=== PATIENT | female | born 1970 | race Caucasian/White ===

== ENCOUNTER → 2017-03-27 | Outpatient (CLI) | payer MEDICAID, SELFPAY | PROVIDERS: Family Provider Nurse Practitioner Family; Visit Provider Nurse Practitioner Family | DX: M65.311 Trigger thumb, right thumb (principal) | CPT/HCPCS: 73130; 73140 ==

== ENCOUNTER → 2017-10-31 08:35 | Outpatient (CLI) | payer MEDICAID, SELFPAY ==
--- NOTE | 2017-10-31 09:00 | US_ITS ---
US biopsy guidance, US soft tissue head and neck, US organ site ( Ordering Physician: Jamaal Jones MD Patient Age: 47 years: Female HISTORY: ITS.REASON: RT CERVICAL MASSnow for FNA biopsy TECHNIQUE: Ultrasound About ultrasound-guided FNA biopsy of the right neck mass. Just inferior to the right parotid FINDINGS AND PROCEDURE: ULTRASOUND right neck; Echogenic mass at the right neck just inferior to the parotid just below the angle of mandible. It is suspect for infected or complication of a brachial cleft cyst however this subtle cytology report is noted atypia, atypical cells (best important to review cytopathology report) This mass was initially identified outside at [facility] studies. It it appears similar this ultrasound today-it is again identified and measures up to 3 cm length x 2 cm AP. These images also determined the best approach for access to perform aspiration biopsy of this nodule. Scanning by Dr. Israel ULTRASOUND-GUIDED FNA BIOPSY Right Neck Mass I would note patient received Xanax 1 mg for comfort and mild sedation. Prior to the procedure Following sterile preparation as well as local skin, and cautious deeper placement of Xylocaine anesthetic, Under ultrasound guidance the biopsy needle, was advanced to the nodule and positioned. Needle tip was observed passing into the nodule on each of 2 aspiration passes. Similar material was obtained with the initial 25-gauge needle A second pass was then made with a 22-gauge needle in this debris-filled cystic area aspirated and we were able to drain nearly completely. 3-4 cc withdrawn and distributed between the different containers. Turbid greenish-white fluid was obtained. It was sent for differential ,culture and sensitivity... And Gram stain subsequent requested. And also sent for cytology/and flow cytometry;. . IMPRESSION: ------- . 1. turbid whitish purulent appearing aspirated from this 3 cm right neck mass. Summary: 3 cm echogenic ovoid mass at right neck, just below angle of mandible. This is identified on initial ultrasound and was subsequent aspirated under ultrasound guidance. It revealed itself to be primarily a cystic debris-filled cyst containing thick greenish-white fluid.... Suspect initially questioned a infected brachial cleft cyst I but now now see that the cytopathology report demonstrates atypical cells with more involvement differential diagnosis. Please see cytopathology report. In either case this turbid cystic area was near completely drained under ultrasound.. Specimens at sent to lab as as above Added note given the atypia: In retrospect at the end of the exam a question thicker areas which would not aspirate and which I thought were thick purulent material however question now if they could reflect thicker semisolid tissue at its margin of this cystic area.
[2017-10-31 14:29] LABS: Appearance,Body Fld. Cloudy; Volume,Body Fld. 1.5 mL
[2017-10-31 14:30] LABS: Mononuclear WBCs,Body Fluid 30 %; Polynuclear WBC,Body Fluid 70 %
== END ==
PROVIDERS: Family Provider Nurse Practitioner Family; PCP Nurse Practitioner Family; Visit Provider Otolaryngology
DX: R22.1 Localized swelling, mass and lump, neck (principal)
CPT/HCPCS: 10022; 76942; 76536; 87070; 87075; 87205; 89051

== ENCOUNTER 2018-08-21 11:00 | Outpatient (RCR) | payer MEDICAID, SELFPAY | END 2018-09-19 10:30 | disposition home or self-care (01) | LOC: PT.CARL 11:00 | PROVIDERS: Visit Provider Nurse Practitioner Family | DX: G44.209 Tension-type headache, unspecified, not intractable (principal); M25.551 Pain in right hip | CPT/HCPCS: 97014; 97110; 97163; G0283 ==

== ENCOUNTER → 2021-01-09 16:45 | Outpatient (CLI) | payer MEDICAID, SELFPAY | PROVIDERS: Visit Provider Nurse Practitioner | DX: Z20.822 Contact with and (suspected) exposure to COVID-19 (principal) | CPT/HCPCS: C9803; U0003; U0005 ==

== ENCOUNTER 2023-07-23 10:52 | Outpatient (CLI) | payer MEDICAID, SELFPAY ==
--- NOTE | 2023-07-23 10:55 | XR_ITS ---
FINAL REPORT CLINICAL HISTORY: Left knee pain swelling x 1 month injury x 2 years ago leg going numb , fell and hit sidewalk COMPARISON: None FINDINGS: LEFT KNEE 3 views of the left knee were obtained. There is no acute fracture or dislocation. There is mild chondrocalcinosis. The joint spaces are preserved. There is no evidence of joint effusion. Visualized joint spaces are normally aligned. Soft tissues are unremarkable. IMPRESSION: No acute bony abnormality. Reviewed, Interpreted and Dictated by Terrence Kerr MD Transcribed by Mary Aguilar Authenticated and [facility]
== END 2023-07-23 23:59 ==
LOC: RAD 10:52
PROVIDERS: PCP Family Medicine; Visit Provider Orthopaedic Surgery
DX: M25.562 Pain in left knee (principal)
CPT/HCPCS: 73562

== ENCOUNTER 2024-05-17 13:13 | Outpatient (CLI) | payer MEDICAID, SELFPAY ==
--- NOTE | 2024-05-17 14:33 | XR_ITS ---
PROCEDURE INFORMATION: Exam: XR Right Hip Exam date and time: 05/17/2024 2:24 PM Age: 53 years old Clinical indication: Hip pain; Right hip TECHNIQUE: Imaging protocol: Radiologic exam of the right hip. Views: 2 or 3 views hip with pelvis when performed. COMPARISON: No relevant prior studies available. FINDINGS: Bones/joints: Degenerative changes in both hips and sacroiliac joints. There is no evidence of acute fracture.There is no evidence of malalignment or dislocation. Soft tissues: Unremarkable. IMPRESSION: There is no evidence of acute fracture.There is no evidence of malalignment or dislocation.
--- NOTE | 2024-05-17 14:33 | XR_ITS ---
PROCEDURE INFORMATION: Exam: XR Lumbosacral Spine Exam date and time: 05/17/2024 2:30 PM Age: 53 years old Clinical indication: Low back pain TECHNIQUE: Imaging protocol: Radiologic exam of the lumbosacral spine. Views: 2 or 3 views. COMPARISON: CR Hip L 05/17/2024 2:25 PM FINDINGS: Bones/joints: Levoscoliosis of the lumbar spine. There is no evidence of acute fracture.There is no evidence of malalignment or dislocation. Intervertebral disc spaces are narrowed L3 through S1 consistent with degenerative disc disease. Soft tissues: Unremarkable. Intraperitoneal space: Surgical clips in the right upper quadrant IMPRESSION: 1. There is no evidence of acute fracture.There is no evidence of malalignment or dislocation. 2. Intervertebral disc spaces are narrowed L3 through S1 consistent with degenerative disc disease.
--- NOTE | 2024-05-17 14:33 | XR_ITS ---
PROCEDURE INFORMATION: Exam: XR Left Hip Exam date and time: 05/17/2024 2:25 PM Age: 53 years old Clinical indication: Hip pain; Left hip TECHNIQUE: Imaging protocol: Radiologic exam of the left hip. Views: 2 or 3 views hip with pelvis when performed. COMPARISON: No relevant prior studies available. FINDINGS: Bones/joints: There is no evidence of acute fracture.There is no evidence of malalignment or dislocation. Degenerative changes in both hips Soft tissues: Unremarkable. Intraperitoneal space: Surgical clips in the pelvis IMPRESSION: There is no evidence of acute fracture.There is no evidence of malalignment or dislocation.
== END 2024-05-17 23:59 | disposition home or self-care (01) ==
LOC: RAD 13:15
PROVIDERS: PCP Family Medicine; Visit Provider Family Medicine
DX: M25.551 Pain in right hip (principal); M25.552 Pain in left hip
CPT/HCPCS: 72100; 73502

== ENCOUNTER 2024-12-28 13:19 | Outpatient (CLI) | payer MEDICAID, SELFPAY ==
--- OUTSIDE RECORDS SUMMARY | 2024-12-14 10:11 | XMS_ITS | Encounter Summary ---
Author Organization [facility] Address [address] [place] [address] Care Team Providers Care Merchandising Intern Name Role Phone Marti Leon RN Unavailable Unavailable Isaak Owens MD Unavailable [phone] Mitra Villavicencio FINISHER TAILOR APPRENTICE Unavailable [phone] Darlyn Castro RN Unavailable Unavailable Marti Abad Unavailable Unavailable Yaw Hitchcock MD Primary Care Provider Edilma vailable Reason for Referral * Imaging (Routine) - Closed Specialty Diagnoses / Procedures Referred By Contac t Referred To Contact Radiology Diagnoses Encounter for tobacco use cessation counseling Tobacco use Procedures CT Chest Lung Cancer Screening Dipika Castaneda PA [address] [facility] [address] [facility] [place] [address] Phone: tel: fax: Referral ID Status Reason Start Date Expiration Date Visits Re quested Visits Authorized [id number] Closed 09/29/2024 03/31/2026 1 1 Reason for Visit * Imaging (Routine) - Closed Specialty Diagnoses / Procedures Referred By Contac t Referred To Contact Radiology Diagnoses Encounter for tobacco use cessation counseling Tobacco use Procedures CT Chest Lung Cancer Screening Dipika Castaneda PA [address] [facility] [address] [place] [address] Phone: tel: fax: Referral ID Status Reason Start Date Expiration Date Visits Re quested Visits Authorized [id number] Closed 09/29/2024 03/31/2026 1 1 Encounter Details Date Type Department Care Team (Latest Contact Info) Description 12/14/2024 10:11 AM EDT - 12/14/2024 11:59 PM EDT Hospital Encounter [facility] [address] [place] [address] Encounter for tobacco use cessation counseling; Tobacco use Discharge Disposition: Home or Self Care Social History Tobacco Use Types Packs/Day Years Used Date Smoking Tobacco: Every Day Cigarettes 1.9 37.7 Started: 1986 Passive Smoke Exposure: Current Smokeless [...] Suicidal Behavior (Lifetime) No 12:34 PM EDT JuanitoMaria T sparks documented as of this encounter Medications at Time of Discharge acetaminophen (Tylenol) 325 MG tablet Take 2 tablets (650 mg) by mouth if needed. albuterol 108 (90 Base) MCG/ACT inhaler Inhale 2 puffs 4 times a day as needed for wheezing or shortness of breath (cough, or chest tightness.). 18 g 4 12/14/2024 citalopram (CeleXA) 20 MG tablet TAKE 1 [...] 1 tablet by mouth daily. 30 each 11 08/24/2024 SUMAtriptan (Imitrex) 50 MG tablet Take 1 [...] each nostril daily. 16.9 g 11 09/29/2024 Budeson-Glycopyr rol-Formoterol (Breztri Aerosphere) 160-9-4.8 MCG/ACT aerosol Inhale 2 Inhalations 2 times a day. 10.7 g 11 12/14/2024 6 documented as of this encounter Miscellaneous Notes [...] AM EST Appointment Cardiac Imaging [address] [place] [phone] 03/26/2025 9:20 AM EST Office Visit [facility] José Miguel [address] [place] [address] Isaak Owens MD [address] [place] [address] 12/20/2025 10:00 AM EDT Appointment [facility] [address] [place] [phone] 12/20/2025 11:00 AM EDT Ancillary Procedure [facility] [address] [place] [address] 12/20/2025 12:30 PM EDT Office Visit [facility] [address] [place] [address] Dipika Castaneda PA [address] [place] [address] documented as of this encounter Procedures Procedure [...] documented as of this encounter Care Teams Merchandising Intern Relationship Specialty Start Date End Date Yaw Hitchcock MD PCP - General Family Medicine 09/29/24 Marti Leon RN [facility] Registered Nurse 06/18/22 Isaak Owens MD [address] [place] [address] Consulting Physician Cardiology 06/18/22 Mitra Villavicencio APRN [address] [place] [address] Nurse Practitioner Internal Medicine 06/18/22 Darlyn Castro RN [facility] Registered Nurse Cardiology 06/18/22 Marti Abad 12/05/23 documented as of this encounter
--- OUTSIDE RECORDS SUMMARY | 2024-12-14 13:00 | XMS_ITS | Encounter Summary ---
Author Organization [facility] Address [address] [place] [address] Care Team Providers Care Crester Name Role Phone Marti Leon RN Unavailable Unavailable Isaak Owens MD Unavailable [phone] Mitra Villavicencio SKIN DRIER Unavailable [phone] Darlyn Castro RN Unavailable Unavailable Marti Abad Unavailable Unavailable Yaw Hitchcock MD Primary Care Provider Edilma vailable Reason for Referral * Imaging (Routine) - Pending Review Specialty Diagnoses / Procedures Referred By Contac t Referred To Contact Radiology Diagnoses Tobacco use Procedures CT Chest Lung Cancer Screening Dipika Castaneda PA [address] [facility] [address] [place] [facility] [place] [address] Phone: tel: fax: Referral ID Status Reason Start Date Expiration Date V isits Requested Visits Authorized [id number] Pending Review 12/14/2024 06/15/2026 1 1 * Consultation (Routine) - Authorized Specialty Diagnoses / Procedures Referred By Contac t Referred To Contact Diagnoses Moderate persistent asthma, unspecified whether complicated Dipika Castaneda PA [address] [place] [address] Phone: tel: fax: Referral ID Status Reason Start Date Expiration Date V isits Requested Visits Authorized [id number] Authorized 12/14/2024 06/15/2026 1 1 * Medications - Closed Specialty Diagnoses / Procedures Referred By Michael herrera Referred To Contact Dipika Castaneda PA [address] [facility] [address] [facility] [address] [place] [address] Phone: tel: fax: Referral ID Status Reason Start Date Expiration Date Visits Re quested Visits Authorized [id number] Closed 1 1 Reason for Visit * Reason Comments Follow-up * Consultation (Routine) - Closed Specialty Diagnoses / Procedures Referred By Michael herrera Referred To Contact Diagnoses Moderate persistent asthma, unspecified whether complicated Tobacco use Dipika Castaneda PA [id number] [facility] [place] [address] Phone: tel: fax: Referral ID Status Reason Start Date Expiration Date Visits Re quested Visits Authorized [id number] Closed 09/29/2024 03/31/2026 1 1 Encounter Details Date Type Department Care Team (Late st Contact Info) Description 12/14/2024 1:00 PM EDT [facility] [address] [place] [address] Dipika Castaneda PA [address] [facility] [address] [facility] [address] [place] [address] Moderate persistent asthma, unspecified whether [...] pack that lasts 2 weeks. 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 Social History: Lives in [place], [place] with boyfriend with 4 cats. Denies [...] Date CARDIAC SURGERY N/A Heart Surgery from [facility] CHOLECYSTECTOMY CYST EXCISION HYSTERECTOMY Family History Family [...] relevant) Immunizations: Immunization History Administered Date(s) Administered [employer] COVID-19 Vaccine (Blue Cap) 18+ 04/20/2021 VACCINE [...] sprays into each nostril daily. 16.9g 11 Xokqydd-Krwsoxuwmml-Abrhudzjfm (Breztri Aerosphere) 160-9-4.8 MCG/ACT aerosol Inhale 2 [...] pericardial patch, closure of secundum ASD. 10-25-77, [facility]. Atrioventricular Valve: Left AV valve thickening. [...] is no recent study available for direct [id number] comparison. Eos: Imaging: CT Lung Cancer screening [...] weeks. She has intention to quit. Her copy lathe operator does not want her using nicotine patches [...] Other orders - Follow Up Pulm - Fmndhty-Hxmdxdsyojy-Aasajjzuxr (Breztri Aerosphere) 160-9-4.8 MCG/ACT aerosol; Inhale 2 [...] procedures, referring and communicating with consulting health ocular care technician and care coordination. ZHOU Emery [facility] [address] [facility] [address] Dept: [phone] Dept Loc: [phone] Loc documented in this encounter Plan of Treatment Upcoming Encounters Date Type Department Care Team (Late st Contact Info) Description 03/26/2025 8:15 AM EST Appointment Cardiac Imaging [address] [place] [address] 03/26/2025 9:20 AM EST [facility] Visit [facility] [place] [address] [place] [address] Isaak Owens MD [address] [place] [address] 12/20/2025 10:00 AM EDT Appointment [facility] [address] [place] [address] 12/20/2025 11:00 AM EDT Ancillary Procedure [facility] [address] [place] [address] 12/20/2025 12:30 PM EDT Office Visit [facility] [address] [place] [address] Dipika Castaneda PA [address] [place] [address] Scheduled Orders Name Type Priority Associated Diagnoses [...] documented as of this encounter Care Teams Crester Relationship Specialty Start Date End Date Yaw Hitchcock MD PCP - General Family Medicine 09/29/24 Marti Leon [facility] Registered Nurse 06/18/22 Isaak Owens MD [address] [place] [address] Consulting Physician Cardiology 06/18/22 Mitra Villavicencio APRN [address] [place] [address] Nurse Practitioner Internal Medicine 06/18/22 Darlyn Castro RN [facility] Registered Nurse Cardiology 06/18/22 Marti Abad 12/05/23 documented as of this encounter
--- OUTSIDE RECORDS SUMMARY | 2024-12-29 13:30 | XMS_ITS | Clinical Summary ---
Author Organization [facility] Address [address] [place] [address] Care Team Providers Care Credit Counselor Name Role Phone Marti Leon RN Unavailable Unavailable Isaak Owens MD Unavailable [phone] Mitra Villavicencio NAIL TECH Unavailable [phone] Darlyn Castro RN Unavailable Unavailable Marti Abad Unavailable Unavailable Yaw Hitchcock MD Primary Care Provider Edilma vailable Allergies Active Allergy Reactions Criticality Noted Date Comments Codeine Unknown - Patient st ates they do not know rxn details Low 09/30/2012 Nsaids Unknown - Patient st ates they do not know rxn details Low 02/28/2022 Medications SUMAtriptan (Imitrex) 50 MG tablet Take 1 tablet (50 mg total) by mouth if needed for migraine. May repeat dose once in 2 hours if no relief. Do not exceed 2 doses in 24 hours. 9 tablet 1 08/03/19 23 Active famotidine (Pepcid) 40 MG tablet TAKE 1 TABLET 2 TIMES EACH DAY 08/04/19 23 Active omeprazole (PriLOSEC) [address] capsule TAKE 1 CAPSULE 2 TIMES EACH DAY 11/24/19 23 Active acetaminophen (Tylenol) 325 MG tablet Take 2 tablets (650 mg) by mouth if needed. Active citalopram (CeleXA) 20 MG tablet TAKE 1 TABLET 1 TIME EACH DAY 08/23/19 24 Active traZODone (Desyrel) 150 MG tablet TAKE 1 TABLET 1 TIME EACH DAY AT BEDTIME 08/23/19 24 Active spironolacton e (Aldactone) 25 MG tablet Take 1 tablet by mouth daily. 30 each 08/25/19 Active gabapentin (Neurontin) 400 MG capsule TAKE 1 CAPSULE 2 TIMES EACH DAY 08/08/19 25 Active triamcinolone (Kenalog) 0.1 % lotion APPLY A THIN FILM TO THE AFFECTED AREA OF SKIN 1 TIME EACH DAY FOR ITCHING 06/12/19 25 Active tiZANidine (Zanaflex) 4 MG tablet TAKE 1 TABLET 3 TIMES EACH DAY NEEDED FOR MUSCLE TENSION 08/15/19 25 Active triamcinolone (Nasacort) 55 MCG/ACT nasal inhaler Administer 2 sprays into each nostril daily. 16.9 g 09/30/19 25 Active Budeson-Glyco pyrrol-Formot rosy (Breztri Aerosphere) 160-9-4.8 MCG/ACT aerosol Inhale 2 Inhalations 2 times a day. 10.7 g 12/15/19 026 Active albuterol 108 (90 Base) MCG/ACT inhaler Inhale 2 puffs 4 times a day as needed for wheezing or shortness of breath (cough, or chest tightness.). 18 g 12/15/19 25 026 Active mometasone-fo rmoterol (Dulera) 200-5 MCG/ACT inhaler Inhale 2 puffs 2 times a day. Rinse mouth with water after use to reduce aftertaste and incidence of candidiasis. Do not swallow. 13 g 09/30/19 025 Discontinued albuterol 108 (90 Base) MCG/ACT inhaler Inhale 2 puffs 4 times a day as needed for wheezing or shortness of breath (cough, or chest tightness.). 18 g 09/30/19 025 Discontinued(Re order) Active Problems Problem Noted Date Diagnosed Date Encounter before starting medication 08/30/2023 Residual left AV valve stenosis 08/30/2023 Left atrioventricular valve regurgitation 2023 Right atrioventricular valve regurgitation 08/29 Complete AV canal 10/05/2020 Status post patch closure of VSD 10/05/2020 Resolved Problems Problem Noted Date Diagnosed Date Resolved Date S/P complete atrioventricular canal repair 08/30/2023 12/27/2024 Encounters Date Type Department Care Team Description 12/14/2024 1:00 PM EDT Office Visit [facility] [address] [address] Dipika Castaneda PA Moderate persistent asthma, unspecified whether complicated (Primary Dx); Tobacco use; Gastroesophageal reflux disease without esophagitis 12/14/2024 10:11 AM EDT - 12/14/2024 11:59 PM EDT Hospital Encounter [facility] [address] [place] [address] Encounter for tobacco use cessation counseling; Tobacco use Discharge Disposition: Home or Self Care 12/14/2024 Telephone [facility] 0 [facility], [address] [place] [address] Christal Scott RN PA REQUEST 12/14/2024 Travel 09/29/2024 3:30 PM EDT Office Visit [facility] 0 [facility], [address] [place] [address] Dipika Castaneda PA Moderate persistent asthma, unspecified whether complicated (Primary Dx); Encounter for tobacco use cessation counseling; Tobacco use; Shortness of breath; Gastroesophageal reflux disease without esophagitis 09/29/2024 Travel from Last 3 Months Immunizations Immunization Administration Dates Next Due [employer] COVID-19 Vaccine (Blue Cap) 18+ 04/20/19 22 Family History Medical History Relation Name Comments Heart attack Father Asthma Mother COPD Mother Lung cancer Mother COPD Sister Relation Name Status Comments Father Mother Sister Social History Tobacco Use Types Packs/Day Years Used Date Smoking Tobacco: Every Day Cigarettes 1.9 37.7 Started: 1987 Passive Smoke Exposure: Current Smokeless Tobacco: Never Tobacco Cessation:Ready to Q uit: Yes; Counseling Given: Yes Comments:Smokes 1 pack or more of cigarettes per day Alcohol Use Standard [...] on file Sexual Orientation Not on file Last Filed Vital Signs Vital Sign Reading [...] Mass Index 22 12/14/2024 12:30 PM EDT Plan of Treatment Upcoming Encounters Date Type Department Care Team (Late st Contact Info) Description 03/26/2025 8:15 AM EST Appointment Cardiac Imaging [address] [place] [address] 03/26/2025 9:20 AM EST Office Visit [facility] [place] [address] [place] [address] Isaak Owens MD [address] [place] [address] 12/20/2025 10:00 AM EDT Appointment [facility] [address] [place] [address] 12/20/2025 11:00 AM EDT Ancillary Procedure [facility] [address] [place] [address] 12/20/2025 12:30 PM EDT [facility] [address] [place] [address] Dipika Castaneda PA [address] [place] [address] Health Maintenance Due Date Last Done Comments [facility]-HIV Screening 1970 [facility]-Hepatitis C Screening 1970 [facility]-Infant/Child/Adol SDOH Screenings 1970 [facility]- SDOH Screenings 07/24/1989 [facility]-Adult SDOH Screenings 07/24/1989 [facility]-DTaP,Tdap,and Td Vaccine s (1 - Tdap) 07/24/1990 [facility]-Hepatitis B Vaccines (1 of 3 - 19+ 3-dose series) 07/24/1990 [facility]-Pneumococcal Vaccine: 50 + Years (1 of 2 - PCV) 07/24/1990 CT Colonography 07/24/2016 Colonoscopy 07/24/2016 FIT-DNA 07/24/2016 FIT 07/24/2016 FOBT 07/24/2016 Sigmoidoscopy 07/24/2016 [facility]-Colorectal Cancer Screening 07/24/2016 [facility]-Breast Cancer Screening 07/24/2021 [facility]-Zoster Vaccines (1 of 2) 07/24/2021 UDB-KNNNC-12 Vaccine (2 - season) 2024 04/20/2021 [facility]-Influenza Vaccine (#1) 2024 [facility]-Depression Screening 02/27/2025 024, 12/10/2023, 08/29/2023 [facility]-Lung Cancer Screening 12/14/20252024, 12/10/2023, 11/27/2022 [facility]-Cervical Cancer Screening Discontinued [facility]-HPV/Cotest Discontinued 09/06/1992, 01/29/1992, 09/08/1988 [facility]-Pap Smear Discontinued 09/06/1992, 01/29/1992, 09/08/1988 [facility]-Diabetes: Hemoglobin A1C Discontinued 08/02/2022 HPV Vaccines Aged Out No longer eligi ble based on patient's age to complete this topic [facility]-HIB Vaccines Aged Out No longer e ligible based on patient's age to complete this topic [facility]-Hepatitis A Vaccines Aged Out No longer eligible based on patient's age to complete this topic [facility]-IPV Vaccines Aged Out No longer e ligible based on patient's age to complete this topic [facility]-Rotavirus Vaccines Aged Out No lo nger eligible based on patient's age to complete this topic Procedures Procedure Name Priority Date/Time Associated Diagnosis Comments CT CHEST LUNG CANCER SCREENING Routine 12/14/2024 10:21 AM EDT Encounter for tobacco use cessation counseling Tobacco use HEMOGLOBIN A1C Routine 08/02/2022 1:48 PM EDT Complete AV canal CYTO DATA CONVERSION Routine 09/06/1992 12:00 AM EDT from Last 3 Months or Most Recently Relevant to Health Maintenance Results * CT Chest Lung Cancer Screening [...] Manpreet Johnson MD on 12/14/2024 10:46 AM us Dipika EPPERSON IMG CT PROCEDURES Final Resul t * (ABNORMAL) Hemoglobin A1c (08/02/2022 1:48 PM EDT) Hemoglobin A1c 6.2(H) <5.7 % 08/02/2022 1:48 PM EDT [facility] Blood Venous blood specimen / Unknown 08/02/2022 11:46 AM EDT Narrative [facility] - 08/02/2022 1:48 PM EDT HA1C Interpretive Data: Diagnosis of Diabetes: Diabetic > or = 6.5% Pre-diabetic 5.7 to 6.4% Non-diabetic < or = 5.6% Glycemic Targets for Type I and Type II Diabetics: Non- Adults <7.0% Adults <6.0% Children and Adolescents <7.5% Source: [place] [employer]. Standards of medical care in diabetes,2017. Diabetes Care.2017:40 (suppl 1):S1-S135. HbA1c assay performed by an ion-exchange chromatography method that is certified traceable to the DCCT. us Carlos Gomes MD LAB BLOOD ORDERABLES Final Resul t [facility] [address] [place] [address] * Cytology (09/06/1992 12:00 AM EDT) 09/06/1992 09/07/1992 Narrative [facility] - 09/12/1992 12:00 AM EDT [facility] MR #: [id number] [facility] [address] [address] 1970 (Age: 22) FW Collect Date: 09/06/1992 00:00 Receipt Date: 09/07/1992 00:00 Page 1 DEPARTMENT OF PATHOLOGY AND LABORATORY MEDICINE CYTOPATHOLOGY REPORT Email: [email or web address] [phone] * Converted Case * This report may not match the original report format ATTENDING MD/Practitioner: Sabino Romero MD Service: OB Location: Reported: 09/12/1992 00:00 Collected: 09/06/1992 00:00 INTERPRETATION CERVICAL SCRAPE/ENDOCERVICAL BRUSH WITHIN NORMAL LIMITS. SATISFACTORY FOR INTERPRETATION. Electronically Signed Out EVE Loco (ASC) Shanae Keller MD Cervical cytology is a screening test primarily for squamous cancers and precursors and has associated false negative and positive results. New technologies such as liquid based sampling may decrease but will not eliminate all false negative results. Regular screening and follow-up of unexplained clinical signs and symptoms are recommended to minimize false negative results. Please see the ASCCP website (www.asccp.org) for followup recommendations. If HPV testing was requested, correlation with the results is suggested (please call Microbiology at [phone] for results). CLINICAL INFORMATION: Menstrual History: {Not Provided} Date of Last Menstrual Period: {Not Provided} SPECIMEN DESCRIPTION: A: CERVICAL/VAGINAL SMEAR, PAP ICD: F: {Not Entered} SNOMED CODES: 1; [id number] In cases where a pathologist has signed out the report, the service has been rendered in part by a resident. The signing pathologist has performed and is responsible for the reported pathologic evaluation. Historical Provider LAB PATHOLOGY ORDERABLES Fin al Result [facility] from Last 3 Months or Most Recently Relevant to Health Maintenance Insurance Care Teams Credit Counselor Relationship Specialty Start Date End Date Yaw Hitchcock MD PCP - General Family Medicine 09/29/24 Marti Leon RN [facility] Registered Nurse 06/18/22 Isaak Owens MD [address] [place] [address] Consulting Physician Cardiology 06/18/22 Mitra Villavicencio APRN [address] [place] [address] Nurse Practitioner Internal Medicine 06/18/22 Darlyn Castro RN [facility] Registered Nurse Cardiology 06/18/22 Marti Abad 12/05/23
--- OUTSIDE RECORDS SUMMARY | 2024-12-29 13:30 | XMS_ITS | Clinical Summary ---
Author Organization [facility] Address [address] [place] [address] Care Team Providers Care Inventory Taker Name Role Phone Sophy Meza Keya BOND Primary Care Provider [phone] Allergies No known active allergies Medications omeprazole (priLOSEC) 20 MG capsule Take 20 mg by mouth Daily. Active amitriptyline (ELAVIL) 150 MG tablet Take 150 mg by mouth Every Night. Active Active Problems No known active problems Social History Tobacco Use Types Packs/Day Years Used Date Smoking Tobacco: Every Day Cigarettes 1 25 Abuse Screen Answer Date Recorded Unsafe at Home or Work/School Not on file Feels Threatened by Someone? Not on file 02/2023 Does Anyone Keep You from Co ntacting Others or Doint Things Outside the Home? Not on file 01/16/2023 Physical Sign of Abuse Present Not on file 1 Housing Stability Answer Date Recorded Current Living Arrangements Not on file 01/06 Potentially Unsafe Housing Conditions Not on venancio e 01/16/2023 Family and Community Support Answer Antoine e Recorded Help with Day-to-Day Activities Not on file 01/16/2023 Lonely or Isolated Not on file 01/16/2023 Employment Answer Date Recorded Do you want help finding or keeping work or a harjeet b? Not on file 01/16/2023 Disabilities Answer Date Recorded Concentrating, Remembering, or Making Decisions Difficulty Not on file 01/16/2023 Doing Errands Independently Difficulty Not on fi le 01/16/2023 Education Answer Date Recorded Help with school or training? Not on file Preferred Language Not on file 01/16/2023 Comments Unknown Sex and Gender Information Value Date Recorded Sex Assigned at Not on file Legal Sex Female 12:00 PM EDT Gender Identity Not on file Sexual Orientation Not on file Last Filed Vital Signs Vital Sign Reading Time Taken Comments Blood Pressure - - Pulse - - Temperature - - Respiratory Rate - - Oxygen Saturation - - Inhaled Oxygen Concentration - - Weight 74.4 kg (164 lb) 08/12/2016 12:07 PM EDT Height 152.4 cm (5') 08/12/2016 12:07 PM EDT Body Mass Index 32.03 08/12/2016 12:07 PM EDT Plan of Treatment Health Maintenance Due Date Last Done Comments Annual Gynecologic Pelvic and Breast Exam 1971 TDAP/TD VACCINES (1 - Tdap) 07/24/1990 MAMMOGRAM 2011 COLOGUARD 07/24/2016 COLON CANCER SCREENING 5 YEAR SIGMOIDOSCOPY 07/24/2016 COLONOSCOPY 07/24/2016 COLORECTAL CANCER SCREENING 07/24/2016 CT COLONOGRAPHY 07/24/2016 FECAL OCCULT BLOOD TEST 07/24/2016 FIT Testing (1 year) 07/24/2016 ANNUAL PHYSICAL 08/12/2016 HEPATITIS C SCREENING 08/12/2016 Pneumococcal Vaccine 50+ (1 of 1 - PCV) 07/24/2021 ZOSTER VACCINE (1 of 2) 07/24/2021 INFLUENZA VACCINE 11/06/2024 Insurance [employer] Care Teams Inventory Taker Relationship Specialty Start Date End Date Sophy Meza APRN [address] [place] [address] PCP - General Family Medicine 08/12/16
--- OUTSIDE RECORDS SUMMARY | 2024-12-29 13:30 | XMS_ITS | Encounter Summary ---
Author Organization [facility] Address [address] [place] [address] Care Team Providers Care Service Inspector Name Role Phone Marti Leon RN Unavailable Unavailable Isaak Owens MD Unavailable [phone] Mitra Villavicencio NEUROSCIENCE DIRECTOR NA Unavailable [phone] Darlyn Castro RN Unavailable Unavailable Marti Abad Unavailable Unavailable Yaw Hitchcock MD Primary Care Provider Edilma vailable Reason for Visit * Reason Onset Date Comments PA REQUEST 12/14/2024 Encounter Details Date Type Department Care Team (Late st Contact Info) Description 12/14/2024 Telephone [facility] Medicine Specialties [address], [address] [place] [address] Christal Scott RN CH-VASCULAR & INTERVENTIONAL RADIOLOGY PA REQUEST Social History Tobacco Use Types Packs/Day Years [...] as of this encounter Miscellaneous Notes * Telephone Encounter - Christal Scott RN - 12/14/2024 4:55 PM EDT Please attempt PA on Jodi Ordonez: [id number] CYDNEY GARCIA documented in this encounter Plan of Treatment Upcoming Encounters Date Type Department Care Team (Late st Contact Info) Description 03/26/2025 8:15 AM EST Appointment Cardiac Imaging [address] [place] [phone] 03/26/2025 9:20 AM EST Office Visit [facility] José Miguel [address] [place] [address] Isaak Owens MD [address] [place] [address] 12/20/2025 10:00 AM EDT Appointment [facility] Radiology [address] [place] [phone] 12/20/2025 11:00 AM EDT Ancillary Procedure [facility] [address] [place] [address] 12/20/2025 12:30 PM EDT Office Visit [facility] [address], [address] [place] [address] Cydney Garcia PA [address] [place] [address] documented as of this encounter Visit Diagnoses Not on filedocumented in this encounter Additional Health Concerns Assessment Noted Time PHQ-9 Depression Total Score: 9 08/29/19 11:11 AM EDT A fall risk assessment has been complete d for the patient 12/14/2024 12:35 PM EDT A Body Mass Index follow-up plan has been documented for the patient 12/14/2024 1:29 PM EDT documented as of this encounter Care Teams Service Inspector Relationship Specialty Start Date End Date Yaw Hitchcock MD PCP - General Family Medicine 09/29/24 Marti Leon RN [facility] Registered Nurse 06/18/22 Isaak Owens MD [address] [place] [address] Consulting Physician Cardiology 06/18/22 Mitra Villavicencio APRN [address] [place] [address] Nurse Practitioner Internal Medicine 06/18/22 Darlyn Castro RN [facility] Registered Nurse Cardiology 06/18/22 Marti Abad 12/05/23 documented as of this encounter
--- OUTSIDE RECORDS SUMMARY | 2024-12-29 13:30 | XMS_ITS | Encounter Summary ---
Author Organization [facility] Address [address] [place] [address] Care Team Providers Care Drapery Sewer Hand Name Role Phone Marti Leon RN Unavailable Unavailable Isaak Owens MD Unavailable [phone] Mitra Villavicencio CLEANING ASSOCIATE Unavailable [phone] Darlyn Castro RN Unavailable Unavailable Marti Abad Unavailable Unavailable Yaw Hitchcock MD Primary Care Provider Edilma vailable Encounter Details Date Type Department Care Team (Latest Contact Info) Description 12/14/2024 Travel Social History Tobacco Use Types Packs/Day Years [...] Wish to be (Past 1 Month) No 12:34 PM EDT Maria T Solomon 2. Non-Specific Active Suici chance Thoughts (Past 1 Month) No 12/14/2024 12:34 PM EDT Breana Solomon 6. Suicidal Behavior (Lifetime) No 12:34 PM EDT Maria T Solomon documented as of this encounter Plan of Treatment Upcoming Encounters Date Type Department Care Team (Late st Contact Info) Description 03/26/2025 8:15 AM EST Appointment Cardiac Imaging [address] [place] [address] 03/26/2025 9:20 AM EST Office Visit [facility] [place] [address] [place] [address] Isaak Owens MD [address] [place] [address] 12/20/2025 10:00 AM EDT Appointment [facility] Rad[facility] [address] [place] [address] 12/20/2025 11:00 AM EDT Ancillary Procedure [facility] [address], [address] [place] [address] 12/20/2025 12:30 PM EDT Office [facility] [address] [place] [address] Dipika Castaneda PA [address] [place] [address] documented as of this encounter Visit Diagnoses [...] documented as of this encounter Care Teams Drapery Sewer Hand Relationship Specialty Start Date End Date Yaw Hitchcock MD PCP - General Family Medicine 09/29/24 Marti Leon RN [facility] Registered Nurse 06/18/22 Isaak Owens MD [address] [place] [address] Consulting Physician Cardiology 06/18/22 Mitra Villavicencio APRN [address] [place] [address] Nurse Practitioner Internal Medicine 06/18/22 Darlyn Castro RN [facility] Registered Nurse Cardiology 06/18/22 Marti Abad 12/05/23 documented as of this encounter
== END 2024-12-28 23:59 | disposition home or self-care (01) ==
LOC: LAB.DROPOF 12-29 13:26
PROVIDERS: PCP Family Medicine; Visit Provider Family Medicine
DX: M25.551 Pain in right hip (principal); M25.552 Pain in left hip
CPT/HCPCS: 87086

== ENCOUNTER 2025-02-01 13:45 | Outpatient (CLI) | payer MEDICAID, SELFPAY ==
--- OUTSIDE RECORDS SUMMARY | 2024-12-14 10:11 | XMS_ITS | Encounter Summary ---
Author Organization [facility] Address [address] [place] [address] Care Team Providers Care Dice Dealer Name Role Phone Marti Leon RN Unavailable Unavailable Isaak Owens MD Unavailable [phone] Mitra Villavicencio CHIEF CLINICAL DIETITIAN Unavailable [phone] Darlyn Castro RN Unavailable Unavailable Marti Abad Unavailable Unavailable Yaw Hitchcock MD Primary Care Provider Edilma vailable Reason for Referral * Imaging (Routine) - Closed Specialty Diagnoses / Procedures Referred By Contac t Referred To Contact Radiology Diagnoses Encounter for tobacco use cessation counseling Tobacco use Procedures CT Chest Lung Cancer Screening Dipika Castaneda PA [address] [facility] [address] [facility] [place] [address] Phone: tel: fax: Referral ID Status Reason Start Date Expiration Date Visits Re quested Visits Authorized [id number] Closed 09/29/2024 03/31/2026 1 1 Reason for Visit * Imaging (Routine) - Closed Specialty Diagnoses / Procedures Referred By Contac t Referred To Contact Radiology Diagnoses Encounter for tobacco use cessation counseling Tobacco use Procedures CT Chest Lung Cancer Screening Dipika Castaneda PA [address] [facility] [address] [place] [address] Phone: tel: fax: Referral ID Status Reason Start Date Expiration Date Visits Re quested Visits Authorized [id number] Closed 09/29/2024 03/31/2026 1 1 Encounter Details Date Type Department Care Team (Latest Contact Info) Description 12/14/2024 10:11 AM EDT - 12/14/2024 11:59 PM EDT Hospital Encounter [facility] [address] [place] [address] Encounter for tobacco use cessation counseling; Tobacco [...] AM EST Appointment Cardiac Imaging [address] [place] [phone] 03/26/2025 9:20 AM EST Office Visit [facility] [place] José Miguel [address] [place] [phone] Isaak Owens MD [address] [place] [address] 12/20/2025 10:00 AM EDT Appointment [facility] [address] [place] [phone] 12/20/2025 11:00 AM EDT Ancillary Procedure [facility] Medicine Specialties [address] [place] [phone] 12/20/2025 12:30 PM EDT Office Visit [facility] [address] [place] [address] Dipika Castaneda PA [address] [place] [address] documented as of this encounter Procedures Procedure [...] documented as of this encounter Care Teams Dice Dealer Relationship Specialty Start Date End Date Yaw Hitchcock MD PCP - General Family Medicine 09/29/24 Marti Leon RN [facility] Registered Nurse 06/18/22 Isaak Owens MD [address] [place] [address] Consulting Physician Cardiology 06/18/22 Mitra Villavicencio APRN [address] [place] [address] Nurse Practitioner Internal Medicine 06/18/22 Darlyn Castro RN [facility] Registered Nurse Cardiology 06/18/22 Marti Abad 12/05/23 documented as of this encounter
--- OUTSIDE RECORDS SUMMARY | 2024-12-14 13:00 | XMS_ITS | Encounter Summary ---
Author Organization [facility] Address [address] [place] [address] Care Team Providers Care Exchange Trouble Shooter Name Role Phone Marti Leon RN Unavailable Unavailable Isaak Owens MD Unavailable [phone] Mitra Villavicencio MACHINIST APPRENTICE WOOD Unavailable [phone] Darlyn Castro RN Unavailable Unavailable Marti Abad Unavailable Unavailable Yaw Hitchcock MD Primary Care Provider Edilma vailable Reason for Referral * Imaging (Routine) - Pending Review Specialty Diagnoses / Procedures Referred By Contac t Referred To Contact Radiology Diagnoses Tobacco use Procedures CT Chest Lung Cancer Screening Dipika Castaneda PA [address] [facility] [address] [facility] [place] [address] Phone: tel: fax: Referral ID Status Reason Start Date Expiration Date V isits Requested Visits Authorized [id number] Pending Review 12/14/2024 06/15/2026 1 1 * Consultation (Routine) - Authorized Specialty Diagnoses / Procedures Referred By Contac t Referred To Contact Diagnoses Moderate persistent asthma, unspecified whether complicated Dipika Castaneda PA [address] [place] [address] Phone: tel: fax: Referral ID Status Reason Start Date Expiration Date V isits Requested Visits Authorized [id number] Authorized 12/14/2024 06/15/2026 1 1 * Medications - Closed Specialty Diagnoses / Procedures Referred By Michael herrera Referred To Contact Dipika Castaneda PA [address] [facility] [address] [facility] [address] [place] [address] Phone: tel: fax: Referral ID Status Reason Start Date Expiration Date Visits Re quested Visits Authorized [id number] Closed 1 1 Reason for Visit * Reason Comments Follow-up * Consultation (Routine) - Closed Specialty Diagnoses / Procedures Referred By Michael herrera Referred To Contact Diagnoses Moderate persistent asthma, unspecified whether complicated Tobacco use Dipika Castaneda PA [id number] [facility] [place] [address] Phone: tel: fax: Referral ID Status Reason Start Date Expiration Date Visits Re quested Visits Authorized [id number] Closed 09/29/2024 03/31/2026 1 1 Encounter Details Date Type Department Care Team (Late st Contact Info) Description 12/14/2024 1:00 PM EDT [facility] [address] [place] [address] Dipika Castaneda PA [address] [facility] [address] [facility] [address] [place] [address] Moderate persistent asthma, unspecified whether [...] pack that lasts 2 weeks. Interval History Color Blender does not want her to use patches. Social History: Lives in [place], [place] with boyfriend with 4 cats. Denies [...] Date CARDIAC SURGERY N/A Heart Surgery from [facility] CHOLECYSTECTOMY CYST EXCISION HYSTERECTOMY Family History Family [...] relevant) Immunizations: Immunization History Administered Date(s) Administered [employer] COVID-19 Vaccine (Blue Cap) 18+ 04/20/2021 VACCINE [...] sprays into each nostril daily. 16.9g 11 Xotlccr-Qyokwazkxvl-Ajabjvdaeb (Breztri Aerosphere) 160-9-4.8 MCG/ACT aerosol Inhale 2 [...] pericardial patch, closure of secundum ASD. 10-25-77, [facility]. Atrioventricular Valve: Left AV valve thickening. Mild [...] is no recent study available for direct [id number] comparison. Eos: Imaging: CT Lung Cancer screening [...] weeks. She has intention to quit. Her back maker does not want her using nicotine patches [...] Other orders - Follow Up Pulm - Ccuzfqe-Borbyjjnlzc-Khmfcrkbwu (Breztri Aerosphere) 160-9-4.8 MCG/ACT aerosol; Inhale 2 [...] procedures, referring and communicating with consulting health geriatric personal care aide and care coordination. ZHOU Emery [facility] [address] [facility] [address] Dept: [phone] Dept Loc: [phone] Loc documented in this encounter Plan of Treatment Upcoming Encounters Date Type Department Care Team (Late st Contact Info) Description 03/26/2025 8:15 AM EST Appointment Cardiac Imaging [address] [place] [address] 03/26/2025 9:20 AM EST Office Visit [facility] [place] [address] [place] [address] Isaak Owens MD [address] [place] [address] 12/20/2025 10:00 AM EDT Appointment [facility] [address] [place] [address] 12/20/2025 11:00 AM EDT [facility] [address] [place] [address] 12/20/2025 12:30 PM EDT Office Visit [facility] [address] [place] [address] Dipika Castaneda PA [address] [place] [address] Scheduled Orders Name Type Priority Associated Diagnoses [...] documented as of this encounter Care Teams Exchange Trouble Shooter Relationship Specialty Start Date End Date Yaw Hitchcock MD PCP - General Family Medicine 09/29/24 Marti Leon RN [facility] Registered Nurse 06/18/22 Isaak Owens MD [address] [place] [address] Consulting Physician Cardiology 06/18/22 Mitra Villavicencio APRN [address] [place] [address] Nurse Practitioner Internal Medicine 06/18/22 Darlyn Castro RN [facility] Registered Nurse Cardiology 06/18/22 Marti Abad 12/05/23 documented as of this encounter
--- NOTE | 2025-02-01 13:46 | XR_ITS ---
FINAL REPORT CLINICAL HISTORY: right distal radius fx COMPARISON: None FINDINGS: RIGHT WRIST Three views demonstrate a transverse fracture of the distal radial metaphysis. There is mild dorsal angulation seen on the lateral view. Soft tissue edema over the dorsum of the wrist. Joint spaces appear preserved. IMPRESSION: Distal radius fracture with soft tissue edema. Reviewed, Interpreted and Dictated by Terrence Kerr MD Transcribed by Mary Aguilar Authenticated and [facility]
--- OUTSIDE RECORDS SUMMARY | 2025-02-01 14:41 | XMS_ITS | Clinical Summary ---
[facility] Address [address] [place] [address] Care Team Providers Care Operator Control Room Name Role Phone Sophy Meza Keya BOND Primary Care Provider [phone] Allergies No known active allergies Medications omeprazole [...] 07/24/2021 INFLUENZA VACCINE 11/06/2024 [place] [address] Care Teams Operator Control Room Relationship Specialty Start Date End Date Sophy Meza APRN [address] [place] [address] PCP - General Family Medicine 08/12/16
--- OUTSIDE RECORDS SUMMARY | 2025-02-01 14:41 | XMS_ITS | Encounter Summary ---
Author Organization [facility] ([place], [place], [place], [place]) Address [address] [place] [address] Care Team Providers Care Dental Assistant Teacher Name Role Phone [facility], Provider Not In The System Primary Care Provider Unavailable Yaw Hitchcock MD Primary Care Provider [phone] Reason for Visit * Reason Onset Date Comments OTHER 07/09/2024 Encounter Details Date Type Department Care Team (Late st Contact Info) Description 07/09/2024 Telephone [facility] Gastroenterology [address] [place] [address] Jean Hardy MD [address] [place] [address] OTHER Social History Tobacco Use Types Packs/Day Years Used Date Smoking Tobacco: Every Day Cigarettes 1 20 Smokeless Tobacco: Never Alcohol Use Standard Drinks/Week Comments Never 0 (1 standard drink = 0.6 oz pur e alcohol) Family and Community Support Answer Antoine e Recorded Help with Day to Day Activities Not on file 04/25/2023 Feeling Lonely or Isolated Not on file 04/25 Educational Attainment Answer Date David rded Speak language other than Indonesian at home Not on file 04/25/2023 Want help with school or training Not on file 04/25/2023 Substance Use Answer Date Recorded Used prescription meds for non-medical reasons N ot on file 04/25/2023 Used illegal drugs past 12 months Not on file 04/25/2023 Comments No Sex and Gender Information Value Date Recorded Sex Assigned at Not on file Legal Sex Female 5:29 PM CDT Gender Identity Not on file Sexual Orientation Not on file documented as of this encounter Miscellaneous Notes * Telephone Encounter - Estrella Thompson - 07/09/2024 11:18 AM EDT Patient is needing refill on Pepcid and omeprazole, same pharmacy documented in this encounter Plan of Treatment Not on file documented as of this encounter Visit Diagnoses Not on filedocumented in this encounter Care Teams Dental Assistant Teacher Relationship Specialty Start Date End Date [facility], Provider Not In The System, [place] [address] PCP - General 07/19/23 07/24/24 Yaw Hitchcock MD [address] [place] [address] PCP - General Family Medicine 07/25/24 documented as of this encounter
--- OUTSIDE RECORDS SUMMARY | 2025-02-01 14:41 | XMS_ITS | Encounter Summary ---
Author Organization [facility] Address [address] [place] [address] Care Team Providers Care Jewelry Polisher Name Role Phone Marti Leon RN Unavailable Unavailable Isaak Owens MD Unavailable [phone] Mitra Villavicencio SCREEN PRINTING PRESS OPERATOR Unavailable [phone] Darlyn Castro RN Unavailable Unavailable Marti Abad Unavailable Unavailable Yaw Hitchcock MD Primary Care Provider Edilma vailable Reason for Visit * Reason Onset Date Comments PA REQUEST 12/14/2024 Encounter Details Date Type Department Care Team (Late st Contact Info) Description 12/14/2024 Telephone [facility] Medicine Specialties [address], [address] [place] [address] Christal Scott RN CH-VASCULAR & [...] EDT Please attempt PA on Jodi Ordonez: [id number] CYDNEY GARCIA documented in this encounter Plan of Treatment Upcoming Encounters Date Type Department Care Team (Late st Contact Info) Description 03/26/2025 8:15 AM EST Appointment Cardiac Imaging [address] [place] [address] 03/26/2025 9:20 AM EST Office Visit [facility] [place] José Miguel [address] [facility] [place] [address] Isaak Owens MD [address] [place] [address] 12/20/2025 10:00 AM EDT Appointment [facility] Rad[facility] [address] [place] [address] 12/20/2025 11:00 AM EDT Ancillary Procedure [facility] Medicine Specialties [address], [address] [place] [address] 12/20/2025 12:30 PM EDT Office Visit [facility] Medicine Specialties [address], [address] [place] [address] Cydney Garcia PA [address] [place] [address] documented as of this encounter [...] documented as of this encounter Care Teams Jewelry Polisher Relationship Specialty Start Date End Date Yaw Hitchcock MD PCP - General Family Medicine 09/29/24 Marti Leon RN [facility] Registered Nurse 06/18/22 Isaak Owens MD [address] [place] [address] Consulting Physician Cardiology 06/18/22 Mitra Villavicencio APRN [address] [place] [address] Nurse Practitioner Internal Medicine 06/18/22 Darlyn Castro RN [facility] Registered Nurse Cardiology 06/18/22 Marti Abad 12/05/23 documented as of this encounter
--- OUTSIDE RECORDS SUMMARY | 2025-02-01 14:41 | XMS_ITS | Clinical Summary ---
Author Organization [facility] ([place], [place], [place], [place]) Address [address] [place] [address] Care Team Providers Care Scraper Loader Operator Name Role Phone Yaw Hitchcock MD Primary Care Provider [phone] Allergies Active Allergy Reactions Criticality Noted Date Comments Codeine Nausea And Vomiting 02/28/2022 Nsaids (Non-Steroidal Anti-Inflammatory Drug) Other (See Comments) 02/28/2022 Instructed to avoid due to stomach issues Medications gabapentin (NEURONTIN) 400 MG capsule Take 1 capsule (400 mg total) by mouth 2 (two) times daily. 3 Active citalopram (CeleXA) 20 MG tablet Take 1 tablet (20 mg total) by mouth daily. 3 Active Atrovent HFA 17 mcg/actuation inhaler 2 puffs 4 (four) times daily as needed. 3 Active bisacodyL (DULCOLAX) 5 mg EC tablet TAKE 4 TABLETS AT NOON DAYS ONE AND TWO OF COLON PREP. 8 tablet 3 Active polyethylene glycol (GLYCOLAX) 17 gram/dose powder Pt it to take 1cap full starting two days before colon starting at 5 pm every 15 minutes x7 and repeart the next days. 255 g 3 Active traZODone (DESYREL) 150 MG tablet TAKE 1 TABLET 1 TIME EACH DAY AT BEDTIME 4 Active SUMAtriptan (IMITREX) 50 MG tablet Take 1 tablet (50 mg total) by mouth. 3 Active acetaminophen (TYLENOL) 325 MG tablet Take 2 tablets (650 mg total) by mouth. Active famotidine (PEPCID) 40 MG tabletIndication s:Abdominal pain, unspecified abdominal location,Nausea, Gastroesophageal reflux disease with esophagitis, unspecified whether hemorrhage Take 1 tablet (40 mg total) by mouth 2 (two) times daily. 180 tablet 3 5 Active omeprazole (PriLOSEC) 40 MG capsuleIndicatio ns:Abdominal pain, unspecified abdominal location,Nausea, Gastroesophageal reflux disease with esophagitis, unspecified whether hemorrhage Take 1 capsule (40 mg total) by mouth 2 (two) times daily. 180 capsule 3 5 07/10/19 26 Active budesonide/glyco pyr/formoterol (BREZTRI AEROSPHERE INHL) Inhale by mouth. Active Active Problems Problem Noted Date Diagnosed Date Congenital heart disease 08/12/2024 Epigastric pain 07/21/2024 Left dominant AV canal, AVSD (atrioventricular septal defect) 07/19/2023 Gastric ulcer 02/25/2023 Murmur 12/17/2022 Gastroesophageal reflux disease 12/17/2022 Chronic epigastric pain 12/17/2022 Weight loss 12/17/2022 Smoker 12/17/2022 Chronic obstructive pulmonary disease 12/17/2022 Allergy Anxiety Arthritis Asthma Atrial fibrillation Blood transfusion without reported diagnosis CHF (congestive heart failure) Depression IBS (irritable bowel syndrome) Migraines Family History Medical History Relation Name Comments Alcohol abuse Brother Arthritis Father Heart attack Father Arthritis Mother COPD Mother Depression Mother Lung cancer Mother Arthritis Sister COPD Sister Depression Sister Relation Name Status Comments Brother Father Mother Sister Social History Tobacco Use Types Packs/Day Years Used Date Smoking Tobacco: Every Day Cigarettes 0.5 40 Smokeless Tobacco: Never Tobacco Cessation:Ready to Q uit: Not Asked; Counseling Given: Not Answered Alcohol Use Standard Drinks/Week Comments Never 0 (1 standard drink = 0.6 oz pur e alcohol) Family and Community Support Answer Antoine e Recorded Help with Day to Day Activities Not on file 04/25/2023 Feeling Lonely or Isolated Not on file 04/25 Educational Attainment Answer Date David rded Speak language other than Stateless at home Not on file 04/25/2023 Want [...] Sign Reading Time Taken Comments Blood Pressure 111/65 08/12/2024 11:15 AM EDT Pulse 68 08/12/2024 11:15 AM EDT Temperature 36.4 C (97.5 F) 08/12/2024 10:45 AM EDT Respiratory Rate 20 08/12/2024 11:15 AM EDT Oxygen Saturation 99% 08/12/2024 11:15 AM EDT Inhaled Oxygen Concentration - - Weight 48.5 kg (107 lb) 08/05/2024 11:00 AM EDT Height 152.4 cm (5') 08/05/2024 11:00 AM EDT Body Mass Index 20.9 08/05/2024 11:00 AM EDT Plan of Treatment Health Maintenance Due Date Last Done Comments CT Colonography 1971 FOBT/FIT 1971 Fit-DNA (Cologuard) 1971 Sigmoidoscopy 1971 HIV Screening 07/24/1986 Hepatitis C Screening 07/24/1989 DTAP/TDAP/TD VACCINES (1 - Tdap) 07/24/1990 Pneumococcal 50+ years (1 of 2 - PCV) 07/24/1990 Pap Smear 07/24/1992 Breast Cancer Screening 2011 Lung Cancer Screening 07/24/2021 Shingles Vaccine (Zoster) (1 of 2) 07/24/2021 Tobacco Cessation Counseling and Screening (12+) 06/1006/11/2023 COVID-19 VACCINE (2 - 2024- season) 2024 Influenza Vaccine (#1) 2024 Lipid Panel 08/02/2025 08/02/2022 Colonoscopy 12/17/2032 12/17/2022 Colorectal Cancer Screening 12/17/2032 Insurance Advance Directives For more information, please contact: [phone] * Full Code (Latest Code Status on File) Date Activated Date Inactivated Comments 07/19/2023 9:10 AM 07/19/2023 12:01 PM * Full Code Date Activated Date Inactivated Comments 12/17/2022 8:02 AM 12/17/2022 12:16 PM -Attempt Re suscitation if person has no pulse and is not breathing. -If no pulse or not breathing attempt CPR/CODE. -Call Rapid Response if patient is in distress. * Full Code Date Activated Date Inactivated Comments 12/17/2022 8:02 AM 12/17/2022 8:02 AM -Attempt Res uscitation if person has no pulse and is not breathing. -If no pulse or not breathing attempt CPR/CODE. -Call Rapid Response if patient is in distress. * Full Code Date Activated Date Inactivated Comments 03/05/2022 9:58 AM 03/05/2022 2:35 PM -Attempt R esuscitation if person has no pulse and is not breathing. -If no pulse or not breathing attempt CPR/CODE. -Call Rapid Response if patient is in distress. Care Teams Scraper Loader Operator Relationship Specialty Start Date End Date Yaw Hitchcock MD [address] [place] [address] PCP - General Family Medicine 07/25/24
--- OUTSIDE RECORDS SUMMARY | 2025-02-01 14:41 | XMS_ITS | Encounter Summary ---
Author Organization [facility] Address [address] [place] [address] Care Team Providers Care Registered Nurse First Assistant Name Role Phone Marti Leon RN Unavailable Unavailable Isaak Owens MD Unavailable [phone] Mitra Villavicencio GLAZIER METAL FURNITURE Unavailable [phone] Darlyn Castro RN Unavailable Unavailable Marti Abad [...] AM EST Appointment Cardiac Imaging [address] [place] [address] 03/26/2025 9:20 AM EST Office Visit [facility] [place] [address] [place] [address] Isaak Owens MD [address] [place] [address] 12/20/2025 10:00 AM EDT Appointment [facility] [address] [place] [address] 12/20/2025 11:00 AM EDT Ancillary Procedure [facility] [address], [address] [place] [address] 12/20/2025 12:30 PM EDT Office Visit [facility] [address], [address] [place] [address] Dipika Castaneda PA [address] [place] [phone] documented as of this encounter Visit Diagnoses [...] documented as of this encounter Care Teams Registered Nurse First Assistant Relationship Specialty Start Date End Date Yaw Hitchcock MD PCP - General Family Medicine 09/29/24 Marti Leon [facility] Registered Nurse 06/18/22 Isaak Owens MD [address] [place] [phone] Consulting Physician Cardiology 06/18/22 Mitra Villavicencio APRN [address] [place] [phone] Nurse Practitioner Internal Medicine 06/18/22 Darlyn Castro RN [facility] Registered Nurse Cardiology 06/18/22 Marti Abad 12/05/23 documented as of this encounter
--- OUTSIDE RECORDS SUMMARY | 2025-02-01 14:41 | XMS_ITS | Clinical Summary ---
Author Organization [facility] Address [address] [place] [address] Care Team Providers Care Piped Pocket Machine Operator Name Role Phone Marti Leon RN Unavailable Unavailable Isaak Owens MD Unavailable [phone] Mitra Villavicencio WIRE INSPECTOR Unavailable [phone] Darlyn Castro RN Unavailable Unavailable Marti Abad [...] doses in 24 hours. 9 tablet 1 3 Active famotidine (Pepcid) 40 MG tablet TAKE 1 TABLET 2 TIMES EACH DAY 3 Active omeprazole (PriLOSEC) [address] capsule TAKE 1 CAPSULE 2 TIMES EACH DAY 3 Active acetaminophen (Tylenol) 325 MG tablet Take 2 tablets (650 mg) by mouth if needed. Active citalopram (CeleXA) 20 MG tablet TAKE 1 TABLET 1 TIME EACH DAY 4 Active traZODone (Desyrel) 150 MG tablet TAKE 1 TABLET 1 TIME EACH DAY AT BEDTIME 4 Active spironolactone (Aldactone) 25 MG tablet Take 1 tablet by mouth daily. 30 each 11 5 08/25/19 26 Active gabapentin (Neurontin) 400 MG capsule TAKE 1 CAPSULE 2 TIMES EACH DAY 5 Active triamcinolone (Kenalog) 0.1 % lotion APPLY A THIN FILM TO THE AFFECTED AREA OF SKIN 1 TIME EACH DAY FOR ITCHING 5 Active tiZANidine (Zanaflex) 4 MG tablet TAKE 1 TABLET 3 TIMES EACH DAY NEEDED FOR MUSCLE TENSION 5 Active triamcinolone (Nasacort) 55 MCG/ACT nasal inhaler Administer 2 sprays into each nostril daily. 16.9 g 11 5 Active Budeson-Glycopy rrol-Formoterol (Breztri Aerosphere) 160-9-4.8 MCG/ACT aerosol Inhale 2 Inhalations 2 times a day. 10.7 g 11 5 12/15/19 26 Active albuterol 108 (90 Base) MCG/ACT inhaler Inhale 2 puffs 4 times a day as needed for wheezing or shortness of breath (cough, or chest tightness.). 18 g 4 5 12/15/19 26 Active Active Problems Problem Noted Date Diagnosed [...] Description 12/14/2024 1:00 PM EDT Office [facility] [address], [address] [place] [address] Dipika Castaneda PA Moderate persistent asthma, unspecified whether complicated (Primary Dx); Tobacco use; Gastroesophageal reflux disease without esophagitis 12/14/2024 10:11 AM EDT - 12/14/2024 11:59 PM EDT Hospital Encounter [facility] [address] [place] [address] Encounter for tobacco use cessation counseling; Tobacco use Discharge Disposition: Home or Self Care 12/14/2024 Telephone [facility] [address], [address] [place] [address] Christal Scott, RN PA REQUEST 12/14/2024 Travel from Last 3 Months Immunizations Immunization Administration Dates Next Due Elliott COVID-19 Vaccine (Blue Cap) 18+ 04/20/19 22 [...] AM EST Appointment Cardiac Imaging [address] [place] [phone] 03/26/2025 9:20 AM EST Office Visit [facility] [place] [address] [place] [address] Isaak Owens MD [address] [place] [address] 12/20/2025 10:00 AM EDT Appointment [facility] [address] [place] [phone] 12/20/2025 11:00 AM EDT Ancillary Procedure [facility] [address], [address] [place] [address] 12/20/2025 12:30 PM EDT [facility] [address], [address] [place] [address] Dipika Castaneda PA [address] [place] [address] Health Maintenance Due Date Last [...] 07/24/2016 Sigmoidoscopy 07/24/2016 [facility]-Colorectal Cancer Screening 07/24/2016 Lung Cancer Screening Shared Decision Making 07/24/2021 [facility]-Breast Cancer Screening 07/24/2021 [facility]-Zoster Vaccines (1 of 2) 07/24/2021 [id number] Vaccine (2 - season) 2024 04/20/2021 [facility]-Influenza [...] MD on 12/14/2024 10:46 AM Dipika EPPERSON IM CT PROCEDURES Final Resul t * (ABNORMAL) Hemoglobin A1c (08/02/2022 1:48 PM EDT) Hemoglobin A1c 6.2(H) <5.7 % 08/02/2022 1:48 PM EDT [facility] Blood Venous blood specimen / Unknown 08/02/2022 11:46 AM EDT Narrative [facility] - 08/02/2022 1:48 PM EDT HA1C Interpretive Data: Diagnosis of Diabetes: Diabetic > or = 6.5% Pre-diabetic 5.7 to 6.4% Non-diabetic < or = 5.6% Glycemic Targets for Type I and Type II Diabetics: Non- Adults <7.0% Adults <6.0% Children and Adolescents <7.5% Source: [place] Diabetes Association. Standards of medical care in diabetes,2017. Diabetes Care.2017:40 (suppl 1):S1-S135. HbA1c assay performed by an ion-exchange chromatography method that is certified traceable to the DCCT. us Carlos Gomes MD LAB BLOOD ORDERABLES Final Resul t [facility] [address] [place] [address] * Cytology (09/06/1992 12:00 AM EDT) 09/06/1992 09/07/1992 Narrative [facility] - 09/12/1992 12:00 AM EDT [facility] MR #: [id number] [facility] [address] [place] [address] 1970 (Age: 22) FW Collect Date: 09/06/1992 00:00 Receipt Date: 09/07/1992 00:00 Page 1 DEPARTMENT OF PATHOLOGY AND LABORATORY MEDICINE CYTOPATHOLOGY REPORT Email: [email or web address] * Converted Case * This report may not match the original report format ATTENDING MD/Practitioner: Sabino Romero MD Service: OB Location: Reported: 09/12/1992 00:00 Collected: 09/06/1992 00:00 INTERPRETATION CERVICAL SCRAPE/ENDOCERVICAL BRUSH WITHIN NORMAL LIMITS. SATISFACTORY FOR INTERPRETATION. Electronically Signed Out EVE Loco (ASCP) Shanae Keller MD Cervical cytology is a [...] results is suggested (please call Microbiology at [phone] for results). CLINICAL INFORMATION: Menstrual History: {Not Provided} Date of Last Menstrual Period: {Not Provided} SPECIMEN DESCRIPTION: A: CERVICAL/VAGINAL SMEAR, PAP ICD: F: {Not Entered} SNOMED CODES: 1; [id number] [id number] In cases where a pathologist has signed out the report, the service has been rendered in part by a resident. The signing pathologist has performed and is responsible for the reported pathologic evaluation. us Historical Provider LAB PATHOLOGY ORDERABLES Fin al Result SUNQUEST from Last 3 Months or Most Recently Relevant to Health Maintenance Insurance Care Teams Piped Pocket Machine Operator Relationship Specialty Start Date End Date Yaw Hitchcock MD PCP - General Family Medicine 09/29/24 Marti Leon RN [facility] Registered Nurse 06/18/22 Isaak Owens MD [address] [place] [phone] Consulting Physician Cardiology 06/18/22 Mitra Villavicencio APRN [address] [place] [phone] Nurse Practitioner Internal Medicine 06/18/22 Darlyn Castro RN [facility] Registered Nurse Cardiology 06/18/22 Marti Abad 12/05/23
--- OUTSIDE RECORDS SUMMARY | 2025-02-01 14:41 | XMS_ITS | Referral Summary ---
Author Organization [employer] ([place], [place], [place], [place]) Address [address] [place] [address] Care Team Providers Care Clinic Physician Director Name Role Phone Yaw Hitchcock MD Primary Care Provider [phone] Allergies Active Allergy Reactions Criticality Noted Date [...] failure) Depression IBS (irritable bowel syndrome) Migraines Social History Tobacco Use Types Packs/Day Years [...] Date David rded Speak language other than Estonian at home Not on file 04/25/2023 Want [...] 08/05/2024 11:00 AM EDT Plan of Treatment Not on file [facility] Advance Directives For more information, please contact: [phone] * Full Code (Latest Code Status on [...] if patient is in distress. Care Teams Clinic Physician Director Relationship Specialty Start Date End Date Yaw Hitchcock MD [address] [place] [address] PCP - General Family Medicine 07/25/24
== END 2025-02-01 23:59 | disposition home or self-care (01) ==
LOC: RAD 13:46
PROVIDERS: Visit Provider Physician Assistant Surgical
DX: S52.501D Unspecified fracture of the lower end of right radius, subsequent encounter for closed fracture with routine healing (principal); X58.XXXD Exposure to other specified factors, subsequent encounter
CPT/HCPCS: 73110

== ENCOUNTER 2025-02-08 12:37 | Outpatient (CLI) | payer MEDICAID, SELFPAY ==
--- OUTSIDE RECORDS SUMMARY | 2024-12-14 09:11 | XMS_ITS | Encounter Summary ---
Author Organization [facility] Address [address] [place] [address] Care Team Providers Care Clinic Physician Name Role Phone Marti Leon RN Unavailable Unavailable Isaak Owens MD Unavailable [phone] Mitra Villavicencio BURRING WHEEL OPERATOR Unavailable [phone] Darlyn Castro RN Unavailable Unavailable Marti Abad Unavailable Unavailable Yaw Hitchcock MD Primary Care Provider Edilma vailable Reason for Referral * Imaging (Routine) - Closed Specialty Diagnoses / Procedures Referred By Contac t Referred To Contact Radiology Diagnoses Encounter for tobacco use cessation counseling Tobacco use Procedures CT Chest Lung Cancer Screening Dipika Castaneda PA [address] [facility] [address] [facility] [place] [address] Phone: tel: fax: Referral ID Status Reason Start Date Expiration Date Visits Re quested Visits Authorized [id number] Closed 09/29/2024 03/31/2026 1 1 Reason for Visit * Imaging (Routine) - Closed Specialty Diagnoses / Procedures Referred By Contac t Referred To Contact Radiology Diagnoses Encounter for tobacco use cessation counseling Tobacco use Procedures CT Chest Lung Cancer Screening Dipika Castaneda PA [address] [facility] [address] [place] [address] Phone: tel: fax: Referral ID Status Reason Start Date Expiration Date Visits Re quested Visits Authorized [id number] Closed 09/29/2024 03/31/2026 1 1 Encounter Details Date Type Department Care Team (Latest Contact Info) Description 12/14/2024 10:11 AM EDT - 12/14/2024 11:59 PM EDT Hospital Encounter [facility] [address] [place] [address] Encounter for tobacco use cessation counseling; Tobacco use Discharge Disposition: Home or Self Care Social History Tobacco Use Types Packs/Day Years Used Date Smoking Tobacco: Every Day Cigarettes 1.9 37.8 Started: 1987 Passive Smoke Exposure: Current Smokeless Tobacco: Never Comments:Smokes 1 pack or mo re of cigarettes per day Alcohol Use Standard Drinks/Week Comments Never 0 (1 standard drink = 0.6 oz pur e alcohol) PHQ-2 Answer Date Recorded Patient Health Questionnaire-2 Score 0 02/28/2024 PHQ-9 Answer Date Recorded Patient Health Questionnaire-9 Score 9 08/29/2023 AUDIT-C Answer Date Recorded Q1: How often do you have a drink containing alcohol? Never 09/29/2024 Q2: How many drinks containi ng alcohol do you have on a typical day when you are drinking? Patient does not drink Q3: How often do you have si x or more drinks on one occasion? Never 09/29/2024 PHQ-2A Answer Date Recorded Depression Risk 0 12/10/2023 Comments Unknown Sex and Gender Information Value Date Recorded Sex Assigned at Not on file Legal Sex Female 7:30 PM EDT Gender Identity Not on file Sexual Orientation Not on file documented as of this encounter Functional Status * Calculated C-SSRS Risk Score (Lifetime/Recent) Answer Date of Assessment Author No Risk Indicated 12/14/2024 12:34 PM EDT Maria T Guido * Question Answer Date of Assessment Author 1. Wish to be (Past 1 Month) No 025 12:34 PM EDT Maria T Solomon 2. Non-Specific Active Suici chance Thoughts (Past 1 Month) No 12/14/2024 12:34 PM EDT Breana Solomon 6. Suicidal Behavior (Lifetime) No 12:34 PM EDT Maria T Solomon documented as of this encounter Medications at Time of Discharge acetaminophen (Tylenol) 325 MG tablet Take 2 tablets (650 mg) by mouth if needed. albuterol 108 (90 Base) MCG/ACT inhaler Inhale 2 puffs 4 times a day as needed for wheezing or shortness of breath (cough, or chest tightness.). 18 g 4 12/14/2024 6 Budeson-Glycopyr rol-Formoterol (Breztri Aerosphere) 160-9-4.8 MCG/ACT aerosol Inhale 2 Inhalations 2 times a day. 10.7 g 11 12/14/2024 6 citalopram (CeleXA) 20 MG tablet TAKE 1 TABLET 1 TIME EACH DAY 08/23/2023 famotidine (Pepcid) 40 MG tablet TAKE 1 TABLET 2 TIMES EACH DAY 08/03/2022 gabapentin (Neurontin) 400 MG capsule TAKE 1 CAPSULE 2 TIMES EACH DAY 08/07/2024 omeprazole (PriLOSEC) [address] capsule TAKE 1 CAPSULE 2 TIMES EACH DAY 11/23/2022 spironolactone (Aldactone) 25 MG tablet Take 1 tablet by mouth daily. 30 each 08/24/2024 6 SUMAtriptan (Imitrex) 50 MG tablet Take 1 tablet (50 mg total) by mouth if needed for migraine. May repeat dose once in 2 hours if no relief. Do not exceed 2 doses in 24 hours. 9 tablet 1 08/02/2022 tiZANidine (Zanaflex) 4 MG tablet TAKE 1 TABLET 3 TIMES EACH DAY NEEDED FOR MUSCLE TENSION 08/14/2024 traZODone (Desyrel) 150 MG tablet TAKE 1 TABLET 1 TIME EACH DAY AT BEDTIME 08/23/2023 triamcinolone (Kenalog) 0.1 % lotion APPLY A THIN FILM TO THE AFFECTED AREA OF SKIN 1 TIME EACH DAY FOR ITCHING 06/11/2024 triamcinolone (Nasacort) 55 MCG/ACT nasal inhaler Administer 2 sprays into each nostril daily. 16.9 g 11 09/29/2024 documented as of this encounter Miscellaneous Notes * Progress Notes - Maya Gordon RN - 12/14/2024 11:10 AM EDT LUNG CANCER SCREENING PROGRAM ANNUAL NOTE Hoda Oro is an established patient in the Lung Cancer Screening Program referred by ZHOU Ojeda Lung Cancer Risk Factor Profile Age: 54 y.o. Sex: female Ht Readings from Last 1 Encounters: 09/29/24 1.524 m (5') Wt Readings from Last 1 Encounters: 09/29/24 49.7 kg (109 lb 9.1 oz) Smoking History: Her smoking status has not changed since her last visit. Tobacco Use History[1] E-Cigarette/Vaping E-Cigarette Use Never User Passive Exposure No Counseling Given No Symptoms: History question Answer Diagnosis Date Comment Fever No Fever 08/27/2022 Weight Loss No Weight loss 08/27/2022 Cough Yes Cough Hemoptysis No Hemoptysis 08/27/2022 Shortness of Breath Yes Shortness of breath Sputum Production Yes Sputum production New Cancer Diagnosis Since Last Visit: Chest CT Since Last Visit: The patient has not had a chest CT since the last screening visit. Results of scan: IMPRESSION: Negative screening examination. Recommendations: LungRADS 2: Benign appearance or behavior - CT Chest Lung Cancer Screening recommended in 12 months. Modifier: S - subtle peripheral right upper lobe groundglass opacity, probably inflammatory. Correlation with patient's symptom and attention on follow-up imaging is advised CRITICAL RESULT: No [facility] Internal Review of outside scan: NA Smoking Cessation: Smoking cessation has been addressed by PCP/Referring Physician and she is not using Nicotine Replacement. Smoking cessation was discussed during screening consultation and patient elected to do the following: Patient declined all smoking cessation options Shared Medical Decision Making: Discussion of risk and benefits of lung cancer screening were reviewed during today's conversation.Risks and benefits will again be reviewed with the patient immediately prior to the screening exam. Screening Plan: annual 12/14/2024 [1] Tobacco Use Smoking Status Every Day Current packs/day: 0.10 Average packs/day: 1.9 packs/day for 37.7 years (73.3 ttl pk-yrs) Types: Cigarettes Start date: 1987 Passive exposure: Current Smokeless Tobacco Never Tobacco Comments Smokes 1 pack or more of cigarettes per day documented in this encounter Plan of Treatment Upcoming Encounters Date Type Department Care Team (Late st Contact Info) Description 03/26/2025 8:15 AM EST Appointment Cardiac Imaging [address] [place] [phone] 03/26/2025 9:20 AM EST Office Visit [facility] José Miguel [address] [place] [phone] Isaak Owens MD [address] [place] [address] 12/20/2025 10:00 AM EDT Appointment [facility] [address] [place] [phone] 12/20/2025 11:00 AM EDT Ancillary Procedure [facility] [address] [place] [phone] 12/20/2025 12:30 PM EDT Office Visit [facility] [address] [place] [address] Dipika Castaneda PA [address] [place] [address] documented as of this encounter Procedures Procedure Name Priority Date/Time Associated Diagnosis Comments CT CHEST LUNG CANCER SCREENING Routine 12/14/2024 10:21 AM EDT Encounter for tobacco use cessation counseling Tobacco use documented in this encounter Results * CT Chest Lung Cancer Screening (12/14/2024 10:21 AM EDT) Anatomical Region Laterality Modality Chest Computed Tomogra phy Impressions 12/14/2024 10:46 AM EDT Stable 5 mm right middle lobe nodule. No new suspicious pulmonary nodules. Recommendations: LungRADS 2: Benign appearance or behavior - CT Chest Lung Cancer Screening recommended in 12 months. Modifier: None CRITICAL RESULT: No. COMMUNICATION: Per this written report. By electronically signing this report, I, the attending physician, attest that I have personally reviewed the images/data for the above examination(s) and agree with the final edited report. Drafted by Rafal Frey MD on 12/14/2024 10:32 AM Final report signed by Manpreet Johnson MD on 12/14/2024 10:46 AM Narrative 12/14/2024 10:46 AM EDT CLINICAL INDICATION: Lung cancer screening; personal history of tobacco use. TECHNIQUE: Multiple CT helical images were obtained from thoracic inlet through upper abdomen without contrast. A low radiation dose protocol was utilized. The imaging protocol used in this examination was optimized to achieve diagnostic quality with the lowest possible radiation dose in accordance with the principles of ALARA (As Low As Reasonably Achievable). COMPARISON: 12/10/2023 and 11/27/[address] FINDINGS: Mediastinum, heart, and Pleura: No adenopathy. Heart is normal size. No pericardial effusion. Coronary Calcium: No. Lungs: Stable 5 mm right middle lobe nodule (series 2, image 72). No new suspicious pulmonary nodules. Apical pleural thickening and lung scarring. Upper Abdomen: No suspicious lesion in the partially visualized upper abdomen. Moderate colonic stool burden. Please note that the low dose technique utilized for this examination is optimized for pulmonary nodule evaluation and has limited sensitivity for detection of abdominal abnormalities. Musculoskeletal: Mild degenerative changes of the spine. Prior median sternotomy. Procedure Note Manpreet Johnson MD - 12/14/2024 CLINICAL INDICATION: Lung cancer screening; personal history of tobacco use. TECHNIQUE: Multiple CT helical images were obtained from thoracic inlet through upperabdomen without contrast. A low radiation dose protocol was utilized. The imaging protocol used in this examination was optimized to achievediagnostic quality with the lowest possible radiation dose in accordancewith the principles of ALARA (As Low As Reasonably Achievable). COMPARISON: 12/10/2023 and 11/27/[address] FINDINGS: Mediastinum, heart, and Pleura: No adenopathy. Heart is normal size. Nopericardial effusion. Coronary Calcium: No. Lungs: Stable 5 mm right middle lobe nodule (series 2, image 72). No newsuspicious pulmonary nodules. Apical pleural thickening and lungscarring. Upper Abdomen: No suspicious lesion in the partially visualized upperabdomen. Moderate colonic stool burden. Please note that the low dosetechnique utilized for this examination is optimized for pulmonary noduleevaluation and has limited sensitivity for detection of abdominalabnormalities. Musculoskeletal: Mild degenerative changes of the spine. Prior mediansternotomy. IMPRESSION: Stable 5 mm right middle lobe nodule. No new suspicious pulmonarynodules. Recommendations: LungRADS 2: Benign appearance or behavior - CT Chest Lung Cancer Screeningrecommended in 12 months. Modifier: None CRITICAL RESULT: No. COMMUNICATION: Per this written report. By electronically signing this report, I, the attending physician, attestthat I have personally reviewed the images/data for the aboveexamination(s) and agree with the final edited report. Drafted by Rafal Frey MD on 12/14/2024 10:32 AM Final report signed by Manpreet Johnson MD on 12/14/2024 10:46 AM Dipika EPPERSON IMG CT PROCEDURES Final Resul t documented in this encounter Visit Diagnoses Diagnosis Encounter for tobacco use cessation counseling Tobacco use documented in this encounter Additional Health Concerns Assessment Noted Time PHQ-9 Depression Total Score: 9 08/29/19 24 11:11 AM EDT A fall risk assessment has been complete d for the patient 12/14/2024 12:35 PM EDT A Body Mass Index follow-up plan has been documented for the patient 12/14/2024 1:29 PM EDT documented as of this encounter Care Teams Clinic Physician Relationship Specialty Start Date End Date Yaw Hitchcock MD PCP - General Family Medicine 09/29/24 Marti Leon RN [facility] Registered Nurse 06/18/22 Isaak Owens MD [address] [place] [address] Consulting Physician Cardiology 06/18/22 Mitra Villavicencio APRN [address] [place] [address] Nurse Practitioner Internal Medicine 06/18/22 Darlyn Castro RN [facility] Registered Nurse Cardiology 06/18/22 Marti Abad 12/05/23 documented as of this encounter
--- OUTSIDE RECORDS SUMMARY | 2024-12-14 12:00 | XMS_ITS | Encounter Summary ---
Author Organization [facility] Address [address] [place] [address] Care Team Providers Care Iron Erector Name Role Phone Marti Leon RN Unavailable Unavailable Isaak Owens MD Unavailable [phone] JUDGE Unavailable [phone] Darlyn Castro RN Unavailable Unavailable Marti Abad Unavailable Unavailable Yaw Hitchcock MD Primary Care Provider Edilma vailable Reason for Referral * Imaging (Routine) - Pending Review Specialty Diagnoses / Procedures Referred By Contac t Referred To Contact Radiology Diagnoses Tobacco use Procedures CT Chest Lung Cancer Screening Dipika Castaneda PA [address] [facility] [address] [facility] [place] [address] Phone: tel: fax: Referral ID Status Reason Start Date Expiration Date V isits Requested Visits Authorized [id number] Pending Review 12/14/2024 06/15/2026 1 1 * Consultation (Routine) - Authorized Specialty Diagnoses / Procedures Referred By Contac t Referred To Contact Diagnoses Moderate persistent asthma, unspecified whether complicated Dipika Castaneda PA [address] [place] [address] Phone: tel: fax: Referral ID Status Reason Start Date Expiration Date V isits Requested Visits Authorized [id number] Authorized 12/14/2024 06/15/2026 1 1 * Medications - Closed Specialty Diagnoses / Procedures Referred By Michael herrera Referred To Contact Dipika Castaneda PA [address] [facility] [address] [facility] [address] [place] [address] Phone: tel: fax: Referral ID Status Reason Start Date Expiration Date Visits Re quested Visits Authorized [id number] Closed 1 1 Reason for Visit * Reason Comments Follow-up * Consultation (Routine) - Closed Specialty Diagnoses / Procedures Referred By Michael herrera Referred To Contact Diagnoses Moderate persistent asthma, unspecified whether complicated Tobacco use Dipika Castaneda PA [id number] [facility] [place] [address] Phone: tel: fax: Referral ID Status Reason Start Date Expiration Date Visits Re quested Visits Authorized [id number] Closed 09/29/2024 03/31/2026 1 1 Encounter Details Date Type Department Care Team (Late st Contact Info) Description 12/14/2024 1:00 PM EDT [facility] [address] [place] [address] Dipika Castaneda PA [address] [facility] [address] [facility] [address] [place] [address] Moderate persistent asthma, unspecified whether complicated (Primary Dx); Tobacco use; Gastroesophageal reflux disease without esophagitis Social History Tobacco Use Types Packs/Day Years [...] on file documented as of this encounter Last Filed Vital Signs Vital Sign Reading Time Taken Comments Blood Pressure 98/62 12/14/2024 12:30 PM EDT Pulse 64 12/14/2024 12:30 PM EDT Temperature 36.4 C (97.5 F) 12/14/2024 12:30 PM EDT Respiratory Rate 22 12/14/2024 12:3 0 PM EDT Oxygen Saturation 97% 12/14/2024 12: 30 PM EDT Inhaled Oxygen Concentration - - Weight 51.1 kg (112 lb 10.5 oz) 025 12:30 PM EDT Height 152.4 cm (5') 12/14/2024 12:30 PM EDT Body Mass Index 22 12/14/2024 12:30 PM EDT documented in this encounter Functional Status * Calculated C-SSRS [...] T Solomon documented as of this encounter Miscellaneous Notes * Progress Notes - Dipika Castaneda PA - 12/14/2024 1:00 PM EDT PULMONARY FOLLOW-UP NOTE Established patient: Follow-up for asthma, tobacco use disorder History Of Present Illness Hoda Oro is a 54 y.o. years old female with PMHx of history of VSD, AV canal defect, GERD, Hernandez's esophagus, hiatal hernia, COPD here for ongoing management. Ms. Oro is here for follow up. She says she's been doing pretty good, had a recent upper respiratory infection but has been recovering ok. During his URI, she did have some cough with sputum production but that is getting better. She reports the Dulera inhaler caused her tongue to swell, so discontinued it. She prefers to use Breztri so I will send that in today. She is now down to 1 pack that lasts 2 weeks. Interval History District Service Manager does not want her to use patches. Social History: Lives in [place], [place] with boyfriend with 4 cats. Denies birds/chickens, hot/jaccuzi use, no concernmold/water damage in the home. Not currently working, trying to get disability. Previously worked as a cook. Denies occupational or exposure. Past Medical History Past Medical History: Diagnosis Date COPD (chronic obstructive pulmonary disease) (CMS/HCC) Coronary artery disease Cough Personal history of other diseases of the nervous system and sense organs History of migraine Personal history of other diseases of the respiratory system History of chronic obstructive lung disease Personal history of peptic ulcer disease History of peptic ulcer Second hand smoke exposure Shortness of breath Sputum production Past Surgical History Past Surgical History: Procedure Laterality Date CARDIAC SURGERY N/A Heart Surgery from [employer] [facility] CHOLECYSTECTOMY CYST EXCISION HYSTERECTOMY Family History Family History Problem Relation Name Age of Onset Asthma Mother COPD Mother Lung cancer Mother Heart attack Father COPD Sister Social History reports that she has been smoking cigarettes. She started smoking about 37 years ago. She has a 73.3 pack-year smoking history. She has been exposed to tobacco smoke. She has never used smokeless tobacco. She reports that she does not drink alcohol and does not use drugs. Occupational History (If relevant) Immunizations: Immunization History Administered Date(s) Administered Isentio COVID-19 Vaccine (Blue Cap) 18+ 04/20/2021 VACCINE / DOSE Flu Tetanus Pneumovax Shingles Allergies Codeine and Nsaids Medications Current Outpatient Medications Medication Sig Dispense Refill acetaminophen (Tylenol) 325 MG tablet Take 2 tablets (650 mg) by mouth if needed. albuterol 108 (90 Base) MCG/ACT inhaler Inhale 2 puffs 4 times a day as needed for wheezing or shortness of breath (cough, or chest tightness.). 18 g 4 citalopram (CeleXA) 20 MG tablet TAKE 1 TABLET 1 TIME EACH DAY famotidine (Pepcid) 40 MG tablet TAKE 1 TABLET 2 TIMES EACH DAY gabapentin (Neurontin) 400 MG capsule TAKE 1 CAPSULE 2 TIMES EACH DAY omeprazole (PriLOSEC) [address] capsule TAKE 1 CAPSULE 2 TIMES EACH DAY spironolactone (Aldactone) 25 MG tablet Take 1 tablet by mouth daily. 30 each 11 SUMAtriptan (Imitrex) 50 MG tablet Take 1 tablet (50 mg total) by mouth if needed for migraine. Mayrepeat dose once in 2 hours if no relief. Do not exceed 2 doses in 24 hours. 9 tablet 1 tiZANidine (Zanaflex) 4 MG tablet TAKE 1 TABLET 3 TIMES EACH DAY NEEDED FOR MUSCLE TENSION traZODone (Desyrel) 150 MG tablet TAKE 1 TABLET 1 TIME EACH DAY AT BEDTIME triamcinolone (Kenalog) 0.1 % lotion APPLY A THIN FILM TO THE AFFECTED AREA OF SKIN 1 TIME EACH DAYFOR ITCHING triamcinolone (Nasacort) 55 MCG/ACT nasal inhaler Administer 2 sprays into each nostril daily. 16.9g 11 Kcrlwvp-Ygdbhdvuezz-Kcepyrbwmy (Breztri Aerosphere) 160-9-4.8 MCG/ACT aerosol Inhale 2 Inhalations 2 times a day. 10.7 g 11 No current facility-administered medications for this visit. Items reviewed Tobacco Allergies Meds Problems Med Hx Surg Hx Fam Hx Review of Systems Constitutional: Negative for chills, fever and unexpected weight change. HENT: Negative. Respiratory: Positive for shortness of breath. Negative for cough and wheezing. Cardiovascular: Negative for chest pain and leg swelling. Gastrointestinal: Negative for diarrhea, nausea and vomiting. Skin: Negative for color change and rash. Neurological: Negative for dizziness, syncope and light-headedness. Last Recorded Vitals Visit Vitals BP 98/62 (BP Location: Left arm, Patient Position: Sitting) Pulse 64 Temp 36.4 ??C (97.5 ??F) (Oral) Resp 22 Ht 1.524 m (5') Wt 51.1 kg (112 lb 10.5 oz) SpO2 97% BMI 22.00 kg/m?? Smoking Status Every Day BSA 1.47 m?? Physical Exam Constitutional: Appearance: Normal appearance. She is well-developed. HENT: Head: Normocephalic and atraumatic. Eyes: Pupils: Pupils are equal, round, and reactive to light. Cardiovascular: Heart sounds: Normal heart sounds. Pulmonary: Effort: Pulmonary effort is normal. No respiratory distress. Breath sounds: Normal breath sounds. No wheezing or rales. Musculoskeletal: Cervical back: Normal range of motion. Right lower leg: No edema. Left lower leg: No edema. Neurological: General: No focal deficit present. Mental Status: She is alert. Mental status is at baseline. Psychiatric: Mood and Affect: Mood normal. Behavior: Behavior normal. Results: 12/06/22: Alpha 1 Genotype M/M Echocardiogram 07/2022: History: complete AV canal defect. S/P repair of CAVC including simple suture closure of VSD, left and right AVV valvuloplasty, closure of ASD with pericardial patch, closure of secundum ASD. 10-25-77, [facility]. Atrioventricular Valve: Left AV valve thickening. Mild to moderate left AV valve regurgitation. There is systolic flow reversal of the pulmonary veins. Mild left AV valve stenosis. Doppler mean 5.4 mmHg. Left Ventricle: The left ventricle is the systemic ventricle. Based on the linear dimension and/or 2D volumes, the left ventricle is normal in size. There is normal left ventricular myocardial thickness and mass. The left ventricular systolic function is Low jorge. The LVEF as measured by 3D volumeis 54%. The septal motion is most consistent with septal translation associated with prior cardiac surgery and a conduction abnormality. The diastolic function is abnormal. There is grade II (moderate) diastolic dysfunction. The left ventricular filling pressure is elevated. There is no residual ventricular septal defect present. 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 Right Ventricle: The right ventricle is the subpulmonic ventricle. The right ventricle is mildly dilated. The right ventricular basal diameter is dilated (>41 mm). The right ventricular mid-cavitydiameter is normal (19-35 mm). The right ventricular systolic function is mildly reduced. The estimated global right ventricular systolic function based upon the focused RV view fractional area change is reduced (<35%). Right ventricular systolic pressure is mildly elevated (35-50mmHg). The estimated right ventricular systolic pressure is 41 mmHg. Left Atrium: The left atrial size is severely increased with an indexed volume of >48 mL/m2. Echobright interatrial septum consistent with previous ASD patch repair. No residual shunting noted by color Doppler. Aortic Valve: There is no valvular regurgitation. There is no hemodynamically significant valvular aortic stenosis. Pulmonic Valve: There is trace pulmonic regurgitation. There is no pulmonic stenosis. Great Vessels: The aortic root is normal in size. The sinus of Valsalva (aortic root) diameter is 32 mm by leading edge to leading edge method. In the maximally visualized portion, the ascending aorta appears normal in size. The ascending aorta diameter is 25 mm. The main pulmonary artery is normalin size. IVC/SVC: Based on the IVC size and respiratory variation, the estimated right atrial pressure is 15mmHg. Pericardium: No pericardial effusion. There is no recent study available for direct [id number] comparison. Eos: Imaging: CT Lung Cancer screening 12/14/24 No adenopathy. 5mm RML nodule. No new suspicious pulmonary nodules. Apical pleural thickening and lung scarring. LungRADS 2: Benign, repeat in 12 months. === 12/10/23 === CT CHEST LUNG CANCER SCREENING - Narrative - CLINICAL INDICATION: Lung cancer screening; personal history of tobacco use. TECHNIQUE: Multiple CT helical images were obtained from thoracic inlet through upper abdomen without contrast. A low radiation dose protocol was utilized. Total DLP (Dose-Length Product): 18.94 mGy.cm. Please note: The reported value represents the totalof one or more individual components during the CT acquisition on this date and at this time, and as such, the same value may appear in more than one CT report depending on the interpreting/reporting physicians. COMPARISON: 11/27/2022 FINDINGS: Mediastinum and Pleura: No adenopathy. Coronary Calcium: No. Lungs: Stable 5 mm right middle lobe nodule. Subtle groundglass opacity in the periphery of the right upper lobe is probably inflammatory. Minimal biapical pleural parenchymal thickening is stable. Stable small left fissural nodule, likely benign Upper Abdomen: No suspicious lesion in the partially visualized upper abdomen. Please note that thelow dose technique utilized for this examination is optimized for pulmonary nodule evaluation and has limited sensitivity for detection of abdominal abnormalities. Musculoskeletal: Mild degenerative changes of the spine. - Impression - Negative screening examination. Recommendations: LungRADS 2: Benign appearance or behavior - CT Chest Lung Cancer Screening recommended in 12 months. Modifier: S - subtle peripheral right upper lobe groundglass opacity, probably inflammatory. Correlation with patient's symptom and attention on follow-up imaging is advised CRITICAL RESULT: No. COMMUNICATION: Per this written report. Drafted by Damion Ocasio MD on 12/10/2023 9:02 AM Final report signed by Damion Ocasio MD on 12/10/2023 9:11 AM PFT: I have personally interpreted the test results 12/10/23 FEV1: 2.25 (95%) FVC: 2.79 (95%) FEV1/FVC: 81 (100%) T.68 5.37 (119%) RV%TLC 147% DLCO: 14.54 (79%) Impression: There is no obstruction. Hyperinflation present with a normal DLCO. Date FEV1 FVC FEV1/FVC TLC DLCO 11/27/22 2.00 (84%) 2.92 (99%) 68 (84%) 5.68 (126%) 16.42 (88.9%) 08/27/22 1.90 (80%) 2.85 (96%) 67 (82%) Visit Diagnoses: 1. Moderate persistent asthma, unspecified whether complicated 2. Tobacco use 3. Gastroesophageal reflux disease without esophagitis Assessment/Plan 54 y.o. female with: 1) asthma -Current smoker, 70 pack year history, currently smoking 1 pack that lasts 2 weeks. She has intention to quit. Her shoe trimmer does not want her using nicotine patches at this time. -not currently on oxygen therapy. -she states she cannot tolerate influenza vaccination. Encouraged Prevnar 20 and RSV, she would like to think about it. -PFTs show no obstruction, no restriction with a normal DLCO. I suspect she has an asthma -she reports the Dulera caused her tongue to swell noting, that was she rinsing out her mouth afteruse. Requesting to go back on Breztri - 2 puffs BID. Rx sent today -can continue Albuterol PRN for wheezing, shortness of breath, cough or chest tightness. 2) GERD, Hiatal Hernia -follows with Dr. Hardy -she report she had EGD which found large ulcer, and hiatal hernia -on PPI and H2 moisés 3) Tobacco Use Disorder -prior 2ppd x 35 years -current smoker, now down to <1 ppd. She is not using any agents to assist in smoking cessation. -CT Lung Cancer Screening 12/14/24: LungRADS 2. Will repeat imaging in 12 months. 4) Allergic Rhinitis -on Nasacort daily. Pulmonary health maintenance - PCV-20 (prevnar) - encouraged prevnar 20. - Influenza vaccine - decline influenza vaccination stating she has an allergy. - SARS-CoV-2 vaccination (COVID vaccination) - has received primary vaccination - Lung cancer screening : 35 pack year history, current smoker. Next lung CA screening CT due 12/2025. Follow up: 1 year with full PFT and Lung Cancer Screening CT Diagnoses and all orders for this visit: Moderate persistent asthma, unspecified whether complicated - Follow Up Pulm; Future - Pulmonary Function Test; Future Tobacco use - CT Chest Lung Cancer Screening; Future Gastroesophageal reflux disease without esophagitis Other orders - Follow Up Pulm - Erqhgbj-Fyystqsunxi-Ggcdqtozcf (Breztri Aerosphere) 160-9-4.8 MCG/ACT aerosol; Inhale 2 Inhalations 2 times a day. - albuterol 108 (90 Base) MCG/ACT inhaler; Inhale 2 puffs 4 times a day as needed for wheezing or shortness of breath (cough, or chest tightness.). I spent 40 minutes performing all or some of the following: Reviewing the history , performing an examination and evaluation, entering clinical information into the EHR, interpreting the results, counseling family/patient/caregiver, reviewing x-rays and laboratories, ordering the medications, testsand procedures, referring and communicating with consulting health career development coordinator/teacher and care coordination. ZHOU Emery [facility] [address], [address] [facility] [address] Dept: [phone] Dept Loc: [phone] Loc documented in this encounter Plan of Treatment Upcoming Encounters Date Type Department Care Team (Late st Contact Info) Description 03/26/2025 8:15 AM EST Appointment Cardiac Imaging [address] [place] [address] 03/26/2025 9:20 AM EST Office Visit [facility] [place] [address] [place] [address] Isaak Owens MD [address] [place] [address] 12/20/2025 10:00 AM EDT Appointment [facility] [address] [place] [address] 12/20/2025 11:00 AM EDT Ancillary Procedure [facility] [address] [place] [address] 12/20/2025 12:30 PM EDT Office Visit [facility] Medicine Specialties [address] [place] [address] Dipika Castaneda PA [address] [place] [address] Scheduled Orders Name Type Priority Associated Diagnoses Orde r Schedule Pulmonary Function Test PFT Routine Moderate persistent asthma, unspecified whether complicated 1 Occurrences starting 12/14/2024 until 06/17/2026 CT Chest Lung Cancer Screening Imaging Routine Tobacco use Expected: 12/14/2025 (Approximate), Expires: 06/17/2026 Scheduled Referrals Name Type Priority Associated Diagnoses Orde r Schedule Follow Up Pulm Outpatient Referral Routine Moderate persistent asthma, unspecified whether complicated Expected: 12/14/2025, Expires: 01/13/2026 documented as of this encounter Visit Diagnoses Diagnosis Moderate persistent asthma, unspecified whether complicated- Primary Tobacco use Gastroesophageal reflux disease without esophagitis Esophageal reflux documented in this encounter Additional Health Concerns Assessment Noted Time PHQ-9 Depression Total Score: 9 08/29/19 11:11 AM EDT A fall risk assessment has been complete d for the patient 12/14/2024 12:35 PM EDT A Body Mass Index follow-up plan has been documented for the patient 12/14/2024 1:29 PM EDT documented as of this encounter Care Teams Iron Erector Relationship Specialty Start Date End Date Yaw Hitchcock MD PCP - General Family Medicine 09/29/24 Marti Leon RN [facility] Registered Nurse 06/18/22 Isaak Owens MD [address] [place] [phone] Consulting Physician Cardiology 06/18/22 Mitra Villavicencio APRN [address] [place] [phone] Nurse Practitioner Internal Medicine 06/18/22 Darlyn Castro RN [facility] Registered Nurse Cardiology 06/18/22 Marti Abad 12/05/23 documented as of this encounter
--- NOTE | 2025-02-08 12:39 | XR_ITS ---
FINAL REPORT CLINICAL HISTORY: right wrist fx COMPARISON: 02/01/2025 FINDINGS: RIGHT WRIST Three views demonstrate intra-articular fracture of the distal radius. Dorsal component may be more displaced than on prior exam. There is continued significant soft tissue edema. Ulnar styloid process fracture is unchanged. IMPRESSION: Intra-articular distal radial fracture with possible greater displacement than on prior exam of the dorsal component. Reviewed, Interpreted and Dictated by Radha Holland MD Transcribed by Cony Mathew Authenticated and . [facility]
--- OUTSIDE RECORDS SUMMARY | 2025-02-08 12:40 | XMS_ITS | Referral Summary ---
Author Organization [employer] ([place], [place], [place], [place], [place]) Address [address] [place] [address] Care Team Providers Care Billing Coordinator Name Role Phone Yaw Hitchcock MD Primary Care Provider [phone] Allergies Active Allergy Reactions Criticality Noted Date [...] Date David rded Speak language other than French at home Not on file 04/25/2023 Want [...] Plan of Treatment Not on file [facility] Advance Directives For more information, please contact: [phone] * Full Code (Latest Code Status on [...] if patient is in distress. Care Teams Billing Coordinator Relationship Specialty Start Date End Date Yaw Hitchcock MD [address] [address] PCP - General Family Medicine 07/25/24
--- OUTSIDE RECORDS SUMMARY | 2025-02-08 12:40 | XMS_ITS | Encounter Summary ---
Author Organization [facility] Address [address] [place] [address] Care Team Providers Care Arch Cushion Skiving Machine Operator Name Role Phone Marti Leon RN Unavailable Unavailable Isaak Owens MD Unavailable [phone] Mitra Villavicencio PV DESIGN ENGINEER Unavailable [phone] Darlyn Castro RN Unavailable Unavailable Marti Abad [...] AM EST Appointment Cardiac Imaging [address] [place] [phone] 03/26/2025 9:20 AM EST Office Visit [facility] [place] [address] [place] [phone] Isaak Owens MD [address] [place] [phone] 12/20/2025 10:00 AM EDT Appointment [facility] [address] [place] [address] 12/20/2025 11:00 AM EDT Ancillary Procedure [facility] [address] [place] [phone] 12/20/2025 12:30 PM EDT [facility] [address], [address] [place] [address] Dipika Castaneda PA [address] [place] [phone] documented as of this encounter Visit Diagnoses [...] documented as of this encounter Care Teams Arch Cushion Skiving Machine Operator Relationship Specialty Start Date End Date Yaw Hitchcock MD PCP - General Family Medicine 09/29/24 Marti Leon RN [facility] Registered Nurse 06/18/22 Isaak Owens MD [address] [place] [phone] Consulting Physician Cardiology 06/18/22 Mitra Villavicencio APRN [address] [place] [phone] Nurse Practitioner Internal Medicine 06/18/22 Darlyn Castro RN [facility] Registered Nurse Cardiology 06/18/22 Marti Abad 12/05/23 documented as of this encounter
--- OUTSIDE RECORDS SUMMARY | 2025-02-08 12:40 | XMS_ITS | Encounter Summary ---
Author Organization [employer] ([place], [place], [place], [place], [place]) Address [address] [place] [address] Care Team Providers Care Design Lead Name Role Phone [facility], Provider Not In The System Primary Care Provider Unavailable Ywa Hitchcock MD Primary Care Provider [phone] Reason for Visit * Reason Onset Date Comments OTHER 07/09/2024 Encounter Details Date Type Department Care Team (Late st Contact Info) Description 07/09/2024 Telephone [facility] Gastroenterology [address] [place] [address] eJan Hardy MD [address] [place] [address] OTHER Social History Tobacco Use [...] Date David rded Speak language other than Mosotho at home Not on file 04/25/2023 Want [...] on filedocumented in this encounter Care Teams Design Lead Relationship Specialty Start Date End Date [facility], Provider Not In The System, [place] [address] PCP - General 07/19/23 07/24/24 Yaw Hitchcock MD [address] [place] [address] PCP - General Family Medicine 07/25/24 documented as of this encounter
--- OUTSIDE RECORDS SUMMARY | 2025-02-08 12:40 | XMS_ITS | Encounter Summary ---
Author Organization [facility] Address [address] [place] [address] Care Team Providers Care Nailing Machine Operator Name Role Phone Marti Leon RN Unavailable Unavailable Isaak Owens MD Unavailable [phone] Mitra Villavicencio ASBESTOS ABATEMENT WORKER Unavailable [phone] Darlyn Castro RN Unavailable Unavailable Marti Abad Unavailable Unavailable Yaw Hitchcock MD Primary Care Provider Edilma vailable Reason for Visit * Reason Onset Date Comments PA REQUEST 12/14/2024 Encounter Details Date Type Department Care Team (Late st Contact Info) Description 12/14/2024 Telephone [facility] [address], [address] [place] [address] Christal Scott RN CH-VASCULAR & [...] EDT Please attempt PA on Jodi Ordonez: [id number] CYDNEY GARCIA documented in this encounter Plan of Treatment Upcoming Encounters Date Type Department Care Team (Late st Contact Info) Description 03/26/2025 8:15 AM EST Appointment Cardiac Imaging [address] [place] [phone] 03/26/2025 9:20 AM EST Office Visit [facility] [place] [address] [facility] [place] [phone] Isaak Owens MD [address] [place] [address] 12/20/2025 10:00 AM EDT Appointment [facility] [address] [place] [phone] 12/20/2025 11:00 AM EDT Ancillary Procedure [facility] [address] [place] [address] 12/20/2025 12:30 PM EDT Office Visit [facility] [address], [address] [place] [address] Cydney Garcia PA [address] [place] [address] documented as of this encounter [...] documented as of this encounter Care Teams Nailing Machine Operator Relationship Specialty Start Date End Date Yaw Hitchcock MD PCP - General Family Medicine 09/29/24 Marti Leon RN [facility] Registered Nurse 06/18/22 Isaak Owens MD [address] [place] [address] Consulting Physician Cardiology 06/18/22 Mitra Villavicencio APRN [address] [place] [address] Nurse Practitioner Internal Medicine 06/18/22 Darlyn Castro RN [facility] Registered Nurse Cardiology 06/18/22 Marti Abad 12/05/23 documented as of this encounter
--- OUTSIDE RECORDS SUMMARY | 2025-02-08 12:40 | XMS_ITS | Clinical Summary ---
Author Organization [facility] Address [address] [place] [address] Care Team Providers Care Transfer Coordinator Name Role Phone Sophy Meza Keya BOND Primary Care Provider [phone] Allergies No known active allergies Medications omeprazole [...] VACCINE 11/06/2024 Insurance [employer] Care Teams Transfer Coordinator Relationship Specialty Start Date End Date Sophy Meza APRN [address] [place] [address] PCP - General Family Medicine 08/12/16
--- OUTSIDE RECORDS SUMMARY | 2025-02-08 12:40 | XMS_ITS | Clinical Summary ---
Author Organization [employer] ([place], [place], [place], [place], [place]) Address [address] [place] [address] Care Team Providers Care Scrap Handler Name Role Phone Yaw Hitchcock MD Primary Care Provider [phone] Allergies Active Allergy Reactions Criticality Noted Date [...] Date David rded Speak language other than Dutch at home Not on file 04/25/2023 Want [...] Screening (12+) 06/1006/11/2023 COVID-19 VACCINE (2 - season) 2024 Influenza Vaccine (#1) 2024 Lipid Panel 08/02/2025 08/02/2022 Colonoscopy 12/17/2032 12/17/2022 Colorectal Cancer Screening 12/17/2032 Insurance Advance Directives For more information, please contact: [phone] * Full Code (Latest Code Status on [...] if patient is in distress. Care Teams Scrap Handler Relationship Specialty Start Date End Date Yaw Hitchcock MD [address] [place] [address] PCP - General Family Medicine 07/25/24
--- OUTSIDE RECORDS SUMMARY | 2025-02-08 12:41 | XMS_ITS | Clinical Summary ---
Author Organization [facility] Address [address] [place] [address] Care Team Providers Care Foundation Drill Operator Helper Name Role Phone Marti Leon RN Unavailable Unavailable Isaak Owens MD Unavailable [phone] Mitra Villavicencio CENTRIFUGAL STATION OPERATOR Unavailable [phone] Darlyn Castro RN Unavailable Unavailable Marti [...] Description 12/14/2024 1:00 PM EDT Office Visit [facility] [address] [place] [address] Dipika Castaneda PA Moderate persistent asthma, unspecified whether complicated (Primary Dx); Tobacco use; Gastroesophageal reflux disease without esophagitis 12/14/2024 10:11 AM EDT - 12/14/2024 11:59 PM EDT Hospital Encounter [facility] [address] [place] [address] Encounter for tobacco use cessation counseling; Tobacco use Discharge Disposition: Home or Self Care 12/14/2024 Telephone [facility] [address] [place] [address] Christal Scott, RN PA REQUEST [...] AM EST Appointment Cardiac Imaging [address] [place] [phone] 03/26/2025 9:20 AM EST Office Visit [facility] [place] [address] [place] [address] Isaak Owens MD [address] [place] [address] 12/20/2025 10:00 AM EDT Appointment [facility] [address] [place] [phone] 12/20/2025 11:00 AM EDT Ancillary Procedure [facility] [address] [place] [address] 12/20/2025 12:30 PM EDT Office Visit [facility] [address] [place] [address] Dipika Castaneda PA [address] [place] [address] Health Maintenance Due Date Last [...] 07/24/2021 [facility]-Zoster Vaccines (1 of 2) 07/24/2021 [id number] Vaccine (2 - season) 2024 04/20/2021 [facility]-Influenza [...] <5.7 % 08/02/2022 1:48 PM EDT [facility] Blood Venous blood specimen / Unknown 08/02/2022 11:46 AM EDT Narrative [facility] - 08/02/2022 1:48 PM EDT HA1C Interpretive Data: Diagnosis of Diabetes: Diabetic > or = 6.5% Pre-diabetic 5.7 to 6.4% Non-diabetic < or = 5.6% Glycemic Targets for Type I and Type II Diabetics: Non- Adults <7.0% Adults <6.0% Children and Adolescents <7.5% Source: [place] [employer]. Standards of medical care in diabetes,2017. Diabetes Care.2017:40 (suppl 1):S1-S135. HbA1c assay performed by an ion-exchange chromatography method that is certified traceable to the DCCT. us Carlos Gomes MD LAB BLOOD ORDERABLES Final Resul t [facility] [address] [place] [address] * Cytology (09/06/1992 12:00 AM EDT) 09/06/1992 09/07/1992 Narrative [facility] - 09/12/1992 12:00 AM EDT [facility] MR #: [id number] [facility] [address] [place] [address] 1970 (Age: 22) FW Collect Date: 09/06/1992 00:00 Receipt Date: 09/07/1992 00:00 Page 1 DEPARTMENT OF PATHOLOGY AND LABORATORY MEDICINE CYTOPATHOLOGY REPORT Email: [email or web address] * Converted Case * This report may not match the original report format ATTENDING MD/Practitioner: Sabion Romero MD Service: OB Location: Reported: 09/12/1992 [...] results is suggested (please call Microbiology at [phone] for results). CLINICAL INFORMATION: Menstrual History: {Not Provided} Date of Last Menstrual Period: {Not Provided} SPECIMEN DESCRIPTION: A: CERVICAL/VAGINAL SMEAR, PAP ICD: F: {Not Entered} SNOMED CODES: 1; [id number] [id number] [id number] In cases where a pathologist has signed out the report, the service has been rendered in part by a resident. The signing pathologist has performed and is responsible for the reported pathologic evaluation. us Historical Provider LAB PATHOLOGY ORDERABLES Fin al Result SUNQUEST from Last 3 Months or Most Recently Relevant to Health Maintenance Insurance Care Teams Foundation Drill Operator Helper Relationship Specialty Start Date End Date Yaw Hitchcock MD PCP - General Family Medicine 09/29/24 Marti Leon RN [facility] Registered Nurse 06/18/22 Isaak Owens MD [address] [place] [phone] Consulting Physician Cardiology 06/18/22 Mitra Villavicencio APRN [address] [place] [phone] Nurse Practitioner Internal Medicine 06/18/22 Darlyn Castro RN [facility] Registered Nurse Cardiology 06/18/22 Marti Abad 12/05/23
== END 2025-02-08 23:59 | disposition home or self-care (01) ==
LOC: RAD 12:38
PROVIDERS: PCP Family Medicine; Visit Provider Physician Assistant Surgical
DX: S52.571A Other intraarticular fracture of lower end of right radius, initial encounter for closed fracture (principal)
CPT/HCPCS: 73110

== ENCOUNTER 2025-03-01 12:27 | Outpatient (CLI) | payer MEDICAID, SELFPAY ==
--- NOTE | 2025-03-01 12:31 | XR_ITS ---
FINAL REPORT CLINICAL HISTORY: low back pain..fall FINDINGS: AP and lateral views of the lumbar spine were obtained. There is no prior exam for comparison. There is grade 1 anterior spondylolisthesis of L4 on L5. Alignment is otherwise normal. Vertebral body height is preserved. Multilevel degenerative disc disease is most pronounced at L4-5. No acute paraspinal abnormality. IMPRESSION: No acute osseous abnormality of the lumbar spine. Anterior spondylolisthesis of L4 on L5 and multilevel degenerative disc disease. Reviewed, Interpreted and Dictated by Radha Holland MD Transcribed by Mary Aguilar Authenticated and [facility]
--- NOTE | 2025-03-01 12:31 | XR_ITS ---
FINAL REPORT CLINICAL HISTORY: right hip pain..fall FINDINGS: An AP view of the pelvis and a frog leg view of the right hip were obtained. There is no prior exam for comparison. There is no acute fracture or dislocation. Mild degenerative joint disease cwiiz-drwlzcp-wguc-left of the hips. Remaining osseous pelvis is without acute abnormality. Soft tissues are unremarkable. IMPRESSION: No acute osseous abnormality of the right hip. Reviewed, Interpreted and Dictated by Radha Holland MD Transcribed by Mary Aguilar Authenticated and [facility]
--- NOTE | 2025-03-01 12:31 | XR_ITS ---
FINAL REPORT CLINICAL HISTORY: right wrist fx..fall COMPARISON: 02/08/2025 FINDINGS: AP, oblique, and lateral views of the right wrist were obtained. Plaster cast obscures detail. There has been interval healing of the previously noted distal radius fracture. Ulnar styloid process fracture is again noted. There continues to be soft tissue edema. IMPRESSION: Interval healing distal radius fracture. Stable ulnar styloid process fracture. Reviewed, Interpreted and Dictated by Rahda Holland MD Transcribed by Mary Aguilar Authenticated and [facility]
--- OUTSIDE RECORDS SUMMARY | 2025-03-01 12:33 | XMS_ITS | Clinical Summary ---
Author Organization [facility] Address [address] [place] [address] Care Team Providers Care Apparel Pattern Maker Name Role Phone Marti Leon RN Unavailable Unavailable Isaak Owens MD Unavailable [phone] Mitra Villavicencio PROCUREMENT DIRECTOR Unavailable [phone] Darlyn Castro RN Unavailable Unavailable Marti Abad [...] Description 12/14/2024 1:00 PM EDT Office Visit [facility] [address] [place] [phone] Dipika Castaneda PA Moderate persistent asthma, unspecified whether complicated (Primary Dx); Tobacco use; Gastroesophageal reflux disease without esophagitis 12/14/2024 10:11 AM EDT - 12/14/2024 11:59 PM EDT Hospital Encounter [facility] [address] [place] [address] Encounter for tobacco use cessation counseling; Tobacco use Discharge Disposition: Home or Self Care 12/14/2024 Telephone [facility] [address] [place] [address] Christal Scott RN PA REQUEST 12/14/2024 Travel from Last [...] Date Smoking Tobacco: Every Day Cigarettes 1.9 37.9 Started: 1987 Passive Smoke Exposure: Current Smokeless [...] AM EST Appointment Cardiac Imaging [address] [place] [phone] 03/26/2025 9:20 AM EST Office Visit [facility] [address] [place] [phone] Isaak Owens MD [address] [place] [address] 12/20/2025 10:00 AM EDT Appointment [facility] [address] [place] [phone] 12/20/2025 11:00 AM EDT Ancillary Procedure [facility] [address] [place] [phone] 12/20/2025 12:30 PM EDT Office Visit [facility] [address] [place] [address] Dipika Castaneda PA [address] [place] [address] Health Maintenance Due Date Last Done Comments [facility]-HIV Screening 1970 [facility]-Hepatitis C Screening 1970 [facility]-/Child/Adol SDOH Screenings 1970 [facility]- SDOH Screenings 07/24/1989 [...] 07/24/2021 [facility]-Zoster Vaccines (1 of 2) 07/24/2021 [id number] Vaccine (2 - season) 2024 04/20/2021 [facility]-Influenza [...] <5.7 % 08/02/2022 1:48 PM EDT [facility] Blood Venous blood specimen / Unknown 08/02/2022 11:46 AM EDT Narrative [facility] - 08/02/2022 1:48 PM EDT HA1C Interpretive Data: Diagnosis of Diabetes: Diabetic > or = 6.5% Pre-diabetic 5.7 to 6.4% Non-diabetic < or = 5.6% Glycemic Targets for Type I and Type II Diabetics: Non- Adults <7.0% Adults <6.0% Children and Adolescents <7.5% Source: [place] [employer]. Standards of medical care in diabetes,2017. Diabetes Care.2017:40 (suppl 1):S1-S135. HbA1c assay performed by an ion-exchange chromatography method that is certified traceable to the DCCT. us Carlos Gomes MD LAB BLOOD ORDERABLES Final Resul t [facility] [address] [place] [address] * Cytology (09/06/1992 12:00 AM EDT) 09/06/1992 09/07/1992 Narrative [facility] - 09/12/1992 12:00 AM EDT [facility] MR #: [id number] [facility] [address] [place], [place] [address] 1970 (Age: 22) FW Collect Date: 09/06/1992 00:00 Receipt Date: 09/07/1992 00:00 Page 1 DEPARTMENT OF PATHOLOGY AND LABORATORY MEDICINE CYTOPATHOLOGY REPORT Email: [email or web address] * Converted Case * This report may [...] results is suggested (please call Microbiology at [phone] for results). CLINICAL INFORMATION: Menstrual History: {Not Provided} Date of Last Menstrual Period: {Not Provided} SPECIMEN DESCRIPTION: A: CERVICAL/VAGINAL SMEAR, PAP ICD: F: {Not Entered} SNOMED CODES: 1; [id number] In cases where a pathologist has signed out the report, the service has been rendered in part by a resident. The signing pathologist has performed and is responsible for the reported pathologic evaluation. us Historical Provider LAB PATHOLOGY ORDERABLES Fin al Result [facility] from Last 3 Months or Most Recently Relevant to Health Maintenance Insurance Care Teams Apparel Pattern Maker Relationship Specialty Start Date End Date Yaw Hitchcock MD PCP - General Family Medicine 09/29/24 Marti Leon [facility] Registered Nurse 06/18/22 Isaak Owens MD [address] [place] [phone] Consulting Physician Cardiology 06/18/22 Mitra Villavicencio APRN [address] [place] [phone] Nurse Practitioner Internal Medicine 06/18/22 Darlyn Castro RN [facility] None Registered Nurse Cardiology 06/18/22 Marti Abad 12/05/23
--- OUTSIDE RECORDS SUMMARY | 2025-03-01 12:33 | XMS_ITS | Clinical Summary ---
Author Organization [employer] ([place], [place], [place], [place], [place]) Address [address] [place] [address] Care Team Providers Care Supervisor Particleboard Name Role Phone Yaw Hitchcock MD Primary Care Provider [phone] Allergies Active Allergy Reactions Criticality Noted Date [...] Date David rded Speak language other than Palauan at home Not on file 04/25/2023 Want [...] Advance Directives For more information, please contact: [phone] * Full Code (Latest Code Status on [...] if patient is in distress. Care Teams Supervisor Particleboard Relationship Specialty Start Date End Date Yaw Hitchcock MD [address] [place] [address] PCP - General Family Medicine 07/25/24
--- OUTSIDE RECORDS SUMMARY | 2025-03-01 12:33 | XMS_ITS | Referral Summary ---
Author Organization [employer] ([place], [place], [place], [place], [place]) Address [address] [place] [address] Care Team Providers Care Make Up Girl Name Role Phone Yaw Hitchcock MD Primary Care Provider [phone]- [phone] Allergies Active Allergy Reactions Criticality Noted Date [...] Date David rded Speak language other than Sammarinese at home Not on file 04/25/2023 Want [...] Plan of Treatment Not on file [facility] Advance Directives For more information, please contact: [phone] * Full Code (Latest Code Status on [...] if patient is in distress. Care Teams Make Up Girl Relationship Specialty Start Date End Date Yaw Hitchcock MD [address] [address] PCP - General Family Medicine 07/25/24
--- OUTSIDE RECORDS SUMMARY | 2025-03-01 12:33 | XMS_ITS | Encounter Summary ---
Author Organization [employer] ([place], [place], [place], [place], [place]) Address [address] [place] [address] Care Team Providers Care Educational Advisor Name Role Phone [facility], Provider Not In The System Primary Care Provider Unavailable Yaw Hitchcock MD Primary Care Provider [phone]- [phone] Reason for Visit * Reason Onset Date Comments OTHER 07/09/2024 Encounter Details Date Type Department Care Team (Late st Contact Info) Description 07/09/2024 Telephone [facility] Gastroenterology [address] [place] [address] Jean Hardy MD [address] [place] [address] OTHER Social History Tobacco Use [...] on file 04/25 Educational Attainment Answer Date Advid rded Speak language other than Thai at home Not on file 04/25/2023 Want [...] on filedocumented in this encounter Care Teams Educational Advisor Relationship Specialty Start Date End Date [facility], Provider Not In The System, [place] [address] PCP - General 07/19/23 07/24/24 Yaw Hitchcock MD [address] [place] [address] PCP - General Family Medicine 07/25/24 documented as of this encounter
--- OUTSIDE RECORDS SUMMARY | 2025-03-01 12:33 | XMS_ITS | Clinical Summary ---
Author Organization [facility] Address [address] [place] [address] Care Team Providers Care Senior Investigator Name Role Phone Sophy Meza Keya BOND Primary Care Provider [phone]- [phone] Allergies No known active allergies Medications omeprazole [...] VACCINE 11/06/2024 Insurance [employer] Care Teams Senior Investigator Relationship Specialty Start Date End Date Sophy Meza APRN [address] [place] [address] PCP - General Family Medicine 08/12/16
== END 2025-03-01 23:59 | disposition home or self-care (01) ==
LOC: RAD 12:30
PROVIDERS: PCP Family Medicine; Visit Provider Physician Assistant Surgical
DX: S52.501D Unspecified fracture of the lower end of right radius, subsequent encounter for closed fracture with routine healing (principal); S52.611D Displaced fracture of right ulna styloid process, subsequent encounter for closed fracture with routine healing; M43.16 Spondylolisthesis, lumbar region; M51.369 Other intervertebral disc degeneration, lumbar region without mention of lumbar back pain or lower extremity pain; M25.551 Pain in right hip; W19.XXXA Unspecified fall, initial encounter
CPT/HCPCS: 72100; 73110; 73502